=== PATIENT | female | born 2000 | race Caucasian/White ===

== ENCOUNTER 2023-11-17 16:20 | Emergency (ER) | payer MEDICAID, SELFPAY ==
--- NOTE | ~2023-11-17 | XR_ITS ---
EXAMINATION: RADIOGRAPH RIGHT ANKLE AND RIGHT FOOT CLINICAL INFORMATION: Ankle pain, swelling. COMPARISON: None available. TECHNIQUE: 2 views of the right ankle. 3 views of the right foot. FINDINGS: Diffuse soft tissue swelling. Very subtle age indeterminate cortical irregularity in the medial malleolus. No significant degenerative changes. No bone erosions. No abnormal soft tissue calcifications. XR/XR ankle RT min 3V IMPRESSION: 1. Very subtle age indeterminate cortical irregularity in the medial malleolus that could potentially represent an avulsion fracture. Correlate with point tenderness. 2. Diffuse soft tissue swelling.
--- NOTE | ~2023-11-17 | XR_ITS ---
EXAMINATION: RADIOGRAPH RIGHT ANKLE AND RIGHT FOOT CLINICAL INFORMATION: Ankle pain, swelling. COMPARISON: None available. TECHNIQUE: 2 views of the right ankle. 3 views of the right foot. FINDINGS: Diffuse soft tissue swelling. Very subtle age indeterminate cortical irregularity in the medial malleolus. No significant degenerative changes. No bone erosions. No abnormal soft tissue calcifications. XR/XR foot RT min 3V IMPRESSION: 1. Very subtle age indeterminate cortical irregularity in the medial malleolus that could potentially represent an avulsion fracture. Correlate with point tenderness. 2. Diffuse soft tissue swelling.
[2023-11-17 16:57] VITALS: BP 141/91; PULSE 104; RESP 18; TEMP 36.4; O2SAT 100; BMI 43.9
--- NOTE | 2023-11-17 16:57 | ED.LOWEXIN ---
HPI - Extremity Injury (Lower) General Chief Complaint: Extremity Injury, Lower Stated Complaint: ankle swelling and pain Time Seen by Provider: 11/17/23 21:43 Related Data Allergies Allergy/AdvReac Type Severity Reaction Status Date / Time No Known Allergies Allergy Verified 11/17/23 17:00 Physical Exam Vital Signs: Vital Signs: Last Vital Signs Temp 97.6 F 11/17/23 16:57 Pulse 104 H 11/17/23 16:57 Resp 18 11/17/23 16:57 BP 141/91 H 11/17/23 16:57 Pulse Ox 100 11/17/23 16:57 O2 Del Method Room Air 11/17/23 16:57 BMI result Body Mass Index 43.9 Course Course Course Narrative: RME: 23 yo female here w/ atraumatic right ankle pain/ swelling x1 day. admits to rolling her ankle years ago. was not evaluated for this at the time. denies new injury or trauma however recently started a new job requiring her to stand for long periods of time. wrapped the ankle last night without relief. no otc pain meds. xrs ordered. Full HPI, ROS and PE to be performed by the primary ED provider. Medical Decision Making Radiology Impression Discussion of test interpretation with radiology: I have reviewed the radiologist's reading. Radiologist Impression: XR foot and ankle RT min 3V IMPRESSION: 1. Very subtle age indeterminate cortical irregularity in the medial malleolus that could potentially represent an avulsion fracture. Correlate with point tenderness. 2. Diffuse soft tissue swelling. Dictated By: Kourtney Waite
--- NOTE | 2023-11-17 21:58 | ED.LOWEXIN ---
HPI - Extremity Injury (Lower) General Chief Complaint: Extremity Injury, Lower Stated Complaint: ankle swelling and pain Time Seen by Provider: 11/17/23 21:43 Source: patient Mode of arrival: ambulatory Limitations: no limitations History of Present Illness HPI Narrative: 23-year-old female came in for evaluation of right foot/right ankle pain, patient had a history of twisting her ankle 2 years ago did not seek medical attention then since then she has been having on and off pain and right ankle/right foot, patient started new job recently required her to stand for long time yesterday started to have swelling and pain in her right foot, no recent trauma, no recent twisting, able to ambulate and bear weight on the right lower extremity. Related Data Previous Rx's ?Medication ?Instructions ?Recorded ibuprofen 600 mg tablet 600 mg PO Q8H PRN pain #10 tabs 11/17/23 Allergies Allergy/AdvReac Type Severity Reaction Status Date / Time No Known Allergies Allergy Verified 11/17/23 17:00 Review of Systems Review of Systems: All other systems are reviewed and are negative Constitutional: Reports as per HPI and Reports no additional constitutional complaints Eyes: Reports as per HPI and Reports no additional eye complaints Reports system reviewed and no additional complaints, except as documented Cardiovascular: Reports as per HPI and Reports no additional cardiovascular complaints Respiratory: Reports as per HPI and Reports no additional respiratory complaints Gastrointestinal: Reports as per HPI and Reports no additional gastrointestinal complaints Genitourinary: Reports no additional female genitourinary complaints Musculoskeletal: Reports no additional musculoskeletal complaints Skin/Breast: Reports system reviewed and no additional complaints, except as docu Psychiatric: Reports no additional psychiatric complaints Endocrine: Reports no additional endocrine complaints Hematologic/Lymphatic: Reports no additional hematologic/lymphatic complaints Allergic/Immunologic: Reports no additional allergic/immunologic complaints Reports system reviewed and no additional complaints, except as documented and Reports Abnormal speech present [facility] Social History Social History Advance Directives: No Advance Directives Information Provided: No Physical Exam Vital Signs: Vital Signs: Last Vital Signs Temp 97.6 F 11/17/23 16:57 Pulse 104 H 11/17/23 16:57 Resp 18 11/17/23 16:57 BP 141/91 H 11/17/23 16:57 Pulse Ox 100 11/17/23 16:57 O2 Del Method Room Air 11/17/23 16:57 BMI result Body Mass Index 43.9 Vital signs have been reviewed and appear to be correct. Blood pressure elevated. Heart rate normal. Respiratory rate normal. Temperature normal. Oxygen saturation normal. Appearance: Alert. Oriented X3. No acute distress. Head: Normal external exam. Normocephalic. Atraumatic. No Alexander signs noted. No raccoon eyes noted Eyes: PERRLA. EOMI. Conjunctiva and sclera normal. Eyelids normal. ENT: TM's Normal. Pharynx normal. Uvula midline. Moist mucous membranes. No trismus noted. No drooling noted. No muffled voice noted. Neck: Normal inspection. Neck supple. FROM. No adenopathy. Thyroid Normal. No meningeal signs. No neck mass noted. CVS: Normal heart rate and rhythm. Heart sound normal. No murmurs noted. Pulses normal throughout. Respiratory: No respiratory distress. Painless inspiration. Breath sounds normal. No wheezes/rales/rhonchi noted. Chest nontender. No accessory muscle usage noted or decreased air movement noted. Abdomen: Soft and nontender. Bowel sounds normal in all 4 quadrants. No distention noted. No organomegaly noted. No visible injury noted. Back: No CVA tenderness. Full range of motion noted. Skin: Skin warm and dry. Normal skin color. Normal skin turgor. No rashes/lesions/lacerations noted. Extremities: Right foot/right ankle: No swelling, point of tenderness over 5th metatarsophalangeal junction, no ankle swelling or tenderness, in particular there is no medial malleolus tenderness as described on the x-ray as avulsion fracture, patient pain and symptoms is localized to the right 5th metatarsophalangeal junction, neurovascularly intact. Neuro: Oriented X 3. Cranial nerve exam: II-XII are grossly intact No motor deficit. No sensory deficit. Reflexes normal. Course Reevaluation(s) Reevaluation #1: Right foot/ankle pain on and off for 2 years after remote injury, x-ray consistent with avulsion fracture to the medial malleolus, no tenderness on the medial malleolus, neurovascularly intact, as discussed the plan to Raúl bandage wrap, NSAIDs, ice, and follow up with ortho. Time: 22:01 Medical Decision Making Differential Diagnosis Differential Diagnoses: The differential diagnosis associated with the presentation includes (Right ankle dislocation, right ankle fracture, right ankle sprain, right foot fracture, right foot sprain.) Admission/Observation Consideration of admission/observation: Escalation of care including admission/observation considered Discharge Plan Discharge Clinical Impression: Acute pain of right foot Patient Disposition: Home, Self-Care Instructions: Arthralgia (ED) Prescriptions: New ibuprofen 600 mg tablet 600 mg PO Q8H PRN (Reason: pain) Qty: 10 0RF Referrals: Juanita Hopson MD [Primary Care Provider] - Estuardo Li MD [Physician] - Stand Alone Forms: Work/School Release Print Language: Luxembourgish
[2023-11-17 22:10] VITALS: BP 116/65; PULSE 83; RESP 18; TEMP 36.7; O2SAT 99
== END 2023-11-17 22:15 | disposition home or self-care (01) ==
PROVIDERS: Emergency Provider Emergency Medicine; PCP Pediatrics
DX: M25.471 Effusion, right ankle (principal); M25.571 Pain in right ankle and joints of right foot
CPT/HCPCS: 73610; 73630; 99283

== ENCOUNTER 2023-12-02 13:26 | Outpatient (AMB) | payer MEDICAID, SELFPAY ==
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
[2023-12-02 14:29] VITALS: BMI 43.9
== END 2023-12-02 14:53 | disposition home or self-care (01) ==
PROVIDERS: PCP Pediatrics; Visit Provider Physician Assistant
DX: M76.71 Peroneal tendinitis, right leg (principal)
CPT/HCPCS: 99203

== ENCOUNTER → 2023-12-02 13:26 | Outpatient (BNVA) | payer MEDICAID, SELFPAY | PROVIDERS: PCP Pediatrics; Visit Provider Physician Assistant | DX: M76.71 Peroneal tendinitis, right leg (principal) | CPT/HCPCS: 99212 ==

== ENCOUNTER 2024-11-01 14:54 | Outpatient (REF) | payer MEDICAID, SELFPAY ==
--- OUTSIDE RECORDS SUMMARY | 2024-11-01 17:29 | XMS_ITS | Encounter Summary ---
Author Organization [facility] Address [address] [place] [address] [address] [place] [address] Care Team Providers Care Energy Rater Name Role Phone Juanita Hopson MD Primary Care Provider [phone] Reason for Visit * Reason Comments Med Change Request Encounter Details Date Type Department Care Team (Late Contact Info) Description 11/09/2023 Refill [facility] PEDS [address] [place], [place] [phone] Sarah Smith MD [address] [place] [address] Social History Tobacco Use Types Packs/Day Years Used Date Smoking Tobacco: Never Passive Smoke Exposure: Never Smokeless Tobacco: Never Alcohol Use Standard Drinks/Week Comments Never 0 (1 standard drink = 0.6 oz pur e alcohol) Depression Answer Date Recorded Patient Health Questionnaire-9 Score 18 06/03/2023 Patient Health Questionnaire-9 Score 18 06/03/2023 Last PHQ-9: Questionnaire Data Not on file 1 08/03/2022 Depression Answer Date Recorded Patient Health Questionnaire-2 Score 5 06/03/2023 Comments Unknown Sex and Gender Information Value Date Recorded Sex Assigned at Female 06/01/2022 10:29 AM EDT Legal Sex Female 10:29 AM EDT Gender Identity Female 06/01/2022 10:29 AM EDT Sexual Orientation Straight 04/20/2024 2: 39 PM EDT documented as of this encounter Plan of Treatment Upcoming Encounters Date Type Department Care Team (Late Contact Info) Description 11/09/2024 9:30 AM EDT Procedure Visit [facility]S [address] [place], [place] [phone] Gina Rojas, CNM [address] [place] [address] 11/21/2024 9:00 AM EDT Telemedicine [facility] MED & PEDS [address] [place] [address] Juanita Hopson MD [address] [place] [address] documented as of this encounter Visit Diagnoses Not on filedocumented in this encounter Additional Health Concerns Assessment Noted Time PHQ-9 Depression Total Score: 18 023 2:57 PM EDT documented as of this encounter Care Teams Energy Rater Relationship Specialty Start Date End Date Juanita Hopson MD [address] [place] [address] PCP - General Family Medicine 09/24/20 documented as of this encounter
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
--- OUTSIDE RECORDS SUMMARY | 2024-11-01 17:29 | XMS_ITS | Encounter Summary ---
Author Organization [facility] [employer] [facility] Address [address] [place] [address] [address] [place] [address] Care Team Providers Care Data Review Specialist Name Role Phone Juanita Hopson MD Primary Care Provider [phone] Reason for Visit * Reason Comments Med Change Request Encounter Details Date Type Department Care Team ([facility] Contact Info) Description 09/14/2022 Refill [facility] MEDICINE [address] [place] [address] Juanita Hopson MD [address] [place] [address] Primary insomnia Social History Tobacco Use Types Packs/Day Years Used Date Smoking Tobacco: Never Assessed Comments Unknown Sex and Gender Information Value Date Recorded Sex Assigned at Female 06/01/2022 10:29 AM EDT Legal Sex Female 10:29 AM EDT Gender Identity Female 06/01/2022 10:29 AM EDT Sexual Orientation Straight 04/20/2024 2: 39 PM EDT documented as of this encounter Plan of Treatment Upcoming Encounters Date Type Department Care Team (Late Contact Info) Description 11/09/2024 9:30 AM EDT Procedure Visit [facility] MED & PEDS [address] [place], [place] [phone] Gina Rojas CNM [address] [place] [address] 11/21/2024 9:00 AM EDT Telemedicine [facility] MED & PEDS [address] [place], [place] [phone] Juanita Hopson MD [address] [place] [address] documented as of this encounter Visit Diagnoses Diagnosis Primary insomnia Persistent disorder of initiating or maintaining sleep documented in this encounter Care Teams Data Review Specialist Relationship Specialty Start Date End Date Juanita Hopson MD [address] [place] [address] PCP - General Family Medicine 09/24/20 documented as of this encounter
--- OUTSIDE RECORDS SUMMARY | 2024-11-01 17:29 | XMS_ITS | Encounter Summary ---
Author Organization [employer] Address [address] [facility] 7 [place] [address] Care Team Providers Care Rv Repairer Name Role Phone Juanita Hopson MD Primary Care Provider [phone] Reason for Visit * Reason Onset Date Comments Results 12/20/2023 Encounter Details Date Type Department Care Team ([facility] st Contact Info) Description 12/20/2023 Telephone [facility] MEDICINE [address] [place] [address] Juanita Hopson MD [address] [place] [phone] Results Social History Tobacco Use Types Packs/Day Years [...] Patient Health Questionnaire-2 Score 5 06/03/2023 Comments No Sex and Gender Information Value Date Recorded Sex Assigned at Female 06/01/2022 10:29 AM EDT Legal Sex Female 10:29 AM EDT Gender Identity Female 06/01/2022 10:29 AM EDT Sexual Orientation Straight 04/20/2024 2: 39 PM EDT documented as of this encounter Miscellaneous Notes * Telephone Encounter - Wing Bakari RN - 12/23/2023 10:48 AM EDT FYI to provider. Pt contacted about MRI results, pt is frustrated at time it took to obtain resultsand vented being stressed about the wait. Explained to pt that [facility] did not sign off on MRI until 12/20 and [facility] did not receive results until later that day though pt disagrees and says [facility] told her that it was sent earlier. According to media on pt's chart, MRI results were received on 12/20 and relayed this to pt along with how provider that ordered MRI was off. Pt request appt with PCP specifically. Gave telehealth visit for 12/27 at 9 am. Pt verbalized understanding and agreement with plan. * Telephone Encounter - Salvador Contreras - 12/23/2023 8:55 AM EDT Tc from pt requesting an appt with provider over the phone in regards to the results and also a call with them. * Telephone Encounter - Dominga Delgado - 12/22/2023 12:39 PM EDT Tc from pt requesting status on results. * Telephone Encounter - Wing Bakari RN - 12/20/2023 2:00 PM EDT Tc to pt in regards to MRI results, inquired where it was done. Pt stated it was done at [facility] and is anxious for results. Called [facility] and spoke to Dora who stated the MRI is being process and will take 3-4 business days. Called pt back and relayed that MRI is still being processed and togive until at the latest and to call back if she has not heard anything by that day. Pt verbalized understanding and agreement with plan. * Telephone Encounter - Kassandra Freedman - 12/20/2023 9:07 AM EDT Tc from pt requesting a call back in regards MR results. documented in this encounter Plan of Treatment Upcoming Encounters Date Type Department Care Team (Late st Contact Info) Description 11/09/2024 9:30 AM EDT Procedure Visit [facility] MED & PEDS [address] [place] [address] Gina Rojsa, ALENM [address] [place] [address] 11/21/2024 9:00 AM EDT Telemedicine [facility] MED & PEDS [address] [place], [place] [phone] Juanita Hopson MD [address] [place] [address] documented as of this encounter Visit Diagnoses Not on filedocumented in this encounter Additional Health Concerns Assessment Noted Time PHQ-9 Depression Total Score: 18 023 2:57 PM EDT documented as of this encounter Care Teams Rv Repairer Relationship Specialty Start Date End Date Juanita Hopson MD [address] [place] [address] PCP - General Family Medicine 09/24/20 documented as of this encounter
--- OUTSIDE RECORDS SUMMARY | 2024-11-01 17:29 | XMS_ITS | Encounter Summary ---
Author Organization [employer] [facility] Address [address] [place] [address] [address] [place] [address] Care Team Providers Care Belling Machine Operator Name Role Phone Juanita Hopson MD Primary Care Provider [phone] Encounter Details Date Type Department Care Team (Latest Contact Info) Description 11/01/2024 Travel Social History Tobacco Use Types Packs/Day Years [...] Description 11/09/2024 9:30 AM EDT Procedure Visit [facility] MED & PEDS [address] [place] [address] Gina Rojas CNM [address] [place] [address] 11/21/2024 9:00 AM EDT Telemedicine [facility] MED & PEDS [address] [place] [address] Juanita Hopson MD [address] [place] [address] documented as of this encounter Visit Diagnoses Not on filedocumented in this encounter Additional Health Concerns Assessment Noted Time PHQ-9 Depression Total Score: 18 023 2:57 PM EDT documented as of this encounter Care Teams Belling Machine Operator Relationship Specialty Start Date End Date Juanita Hopson MD [address] [place] [address] PCP - General Family Medicine 09/24/20 documented as of this encounter
--- OUTSIDE RECORDS SUMMARY | 2024-11-01 17:29 | XMS_ITS | Encounter Summary ---
Author Organization [employer] [facility] Address [address] [place] [address] 7t [place] [address] Care Team Providers Care Payroll Services Analyst Name Role Phone Juanita Hopson MD Primary Care Provider [phone] Reason for Visit * Reason Comments Med Change Request Encounter Details Date Type Department Care Team ([facility] Contact Info) Description 09/14/2022 Refill [facility] MED & PEDS [address] [place], [place] [phone] Juanita Hopson MD [address] [place] [address] Primary insomnia Social History Tobacco Use Types [...] Upcoming Encounters Date Type Department Care Team ([facility] Contact Info) Description 11/09/2024 9:30 AM EDT Procedure Visit [facility] CHC MED & PEDS [address] [place], [place] [phone] Gina Rojas CNM [address] [place] [address] 11/21/2024 9:00 AM EDT Telemedicine [facility] MED & PEDS [address], [place] [phone] Juanita Hopson MD [address] [place] [address] documented as of this encounter Visit Diagnoses Diagnosis Primary insomnia Persistent disorder of initiating or maintaining sleep documented in this encounter Care Teams Payroll Services Analyst Relationship Specialty Start Date End Date Juanita Hopson MD [address] [place] [address] PCP - General Family Medicine 09/24/20 documented as of this encounter
--- OUTSIDE RECORDS SUMMARY | 2024-11-01 17:29 | XMS_ITS | Encounter Summary ---
Author Organization [employer] Address [address] [place] [address] 7 [place] [address] Care Team Providers Care Etl Lead Name Role Phone Juanita Hopson MD Primary Care Provider [phone] Reason for Visit * Reason Onset Date Comments Medication PA 07/09/2023 Encounter Details Date Type Department Care Team ([facility] st Contact Info) Description 07/09/2023 Telephone [facility] CHC MED & PEDS [address] [place], [place] [phone] Juanita Hopson MD [address] [place] [address] Medication PA Social History Tobacco Use Types Packs/Day Years [...] encounter Miscellaneous Notes * Telephone Encounter - Ramone Vick - 07/28/2023 2:37 PM EST Tc from patient calling to request the status in regards to message below * Telephone Encounter - Salvador Contreras - 07/21/2023 10:50 AM EST Tc from pt requesting status on medication PA Please contact pt @ [phone] * Telephone Encounter - Hilda aVldez LPN - 07/09/2023 3:02 PM EST Please review message below , and advise * Telephone Encounter - Salvador Contreras - 07/09/2023 10:51 AM EST Tc from pt stating that medication DULoxetine HCl 30 MG Capsule Delayed Release Sprinkle won't be refilled at Pharmacy and does not know why. Rug Shampooer contacted Pharmacy and Pharmacy advised medicationNeeded a PA. Please contact Pt @ [phone] documented in this encounter Plan of Treatment Upcoming Encounters Date Type Department Care Team ([facility] st Contact Info) Description 11/09/2024 9:30 AM EDT Procedure Visit [facility] MED & PEDS [address] [place] [address] Gina Rojas CNM [address] [place] [address] 11/21/2024 9:00 AM EDT Telemedicine [facility] MED & PEDS [address] [place] [address] Juanita Hopson MD [address] [place] [address] documented as of this encounter Visit Diagnoses Not on filedocumented in this encounter Additional Health Concerns Assessment Noted Time PHQ-9 Depression Total Score: 18 023 2:57 PM EDT documented as of this encounter Care Teams Etl Lead Relationship Specialty Start Date End Date Juanita Hopson MD [address] [place] [address] PCP - General Family Medicine 09/24/20 documented as of this encounter
--- OUTSIDE RECORDS SUMMARY | 2024-11-01 17:29 | XMS_ITS | Encounter Summary ---
Author Organization [employer] [facility] Address [address] [place] [address] 7t [place] [address] Care Team Providers Care Hydraulic Dredge Operator Name Role Phone Juanita Hopson MD Primary Care Provider [phone] Reason for Visit * Reason Comments Med Change Request Encounter Details Date Type Department Care Team (Late st Contact Info) Description 07/29/2023 Refill [facility] CHC MED & PEDS [address] [place], [place] [phone] Laura Granados MD [address] [place] [address] Elevated blood pressure reading without diagnosis of hypertension Social History Tobacco Use Types Packs/Day Years [...] Description 11/09/2024 9:30 AM EDT Procedure Visit [facility]C MED [facility]EDS [address] [place] [address] Gina Rojas, ALENM [address] [place] [address] 11/21/2024 9:00 AM EDT Telemedicine [facility] MED & PEDS [address] [place] [address] Juanita Hopson MD 505 [place] [address] documented as of this encounter Visit Diagnoses Diagnosis Elevated blood pressure reading without diagnosis of hypertension documented in this encounter Additional Health Concerns Assessment Noted Time PHQ-9 Depression Total Score: 18 023 2:57 PM EDT documented as of this encounter Care Teams Hydraulic Dredge Operator Relationship Specialty Start Date End Date Juanita Hopson MD [address] [place] [address] PCP - General Family Medicine 09/24/20 documented as of this encounter
--- OUTSIDE RECORDS SUMMARY | 2024-11-01 17:30 | XMS_ITS | Clinical Summary ---
Author Organization [employer] Address [address] [facility] 7t [place] [address] Care Team Providers Care Form Tamper Operator Name Role Phone Juanita Hopson MD Primary Care Provider [phone] Allergies No known active allergies Medications * This document contains information received from the source organization and may not represent a complete record from that organization. Melatonin 5 MG capsuleIndications: Primary insomnia ONE TABLET HALF HOUR BEFORE BEDTIME 30 capsule 5 09/14/19 23 Active cloNIDine (Catapres) 0.1 MG tabletIndications:P rimary insomnia TAKE 1 TABLET BY MOUTH AT NIGHT 30 MINUTES BEFORE BED 60 tablet 3 09/14/19 23 Active Melatonin 5 MG capsuleIndications: Primary insomnia Take 1 tab orally qhs 90 capsule 2 09/14/19 23 Active ketotifen (Zaditor) 0.025 % ophthalmic solutionIndications :Eye irritation Administer 1 drop into the right eye 2 times daily. 5 mL 10/03/19 23 Active omeprazole (PriLOSEC) [address] capsuleIndications: Acute gastroenteritis TAKE 1 CAPSULE (20 MG) BY MOUTH BEFORE BREAKFAST. 60 capsule 3 11/06/19 23 Active hydrocortisone (Anusol-HC) 2.5 % rectal creamIndications:He morrhoids, unspecified hemorrhoid type Insert into the rectum 2 times daily. 28 g 12/19/19 23 Active DULoxetine (Cymbalta) [address] capsule Take 1 capsule (20 mg) by mouth 2 times daily. Do not crush or chew. 60 capsule 3 08/09/19 24 Active methocarbamol (Robaxin) 750 MG tablet Take 1 tablet (750 mg) by mouth 3 times daily for 10 days. 30 tablet 12/28/19 24 Active hydrocortisone (West-José Miguel) 0.2 % creamIndications:Al lergic contact dermatitis due to other agents Apply topically 2 times daily. 15 g 04/18/20 24 Active Active Problems Problem Noted Date Diagnosed Date Solitary bone cyst of humerus, right 12/28/2023 Moderate episode of recurrent major depressive d isorder 06/03/2023 Severe anxiety 06/03/2023 Assessment & Plan (06/04/2023 8:37 AM EDT): Assessment: Patient presents with anxiety and depressive symptoms. No risk for self-harm, SI, HI. Reason for visit was to assess symptoms and provide support to patient. 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 Provided space for her to vent and psychoeducation about anxiety and depression coping mechanisms for her to manage symptoms. Med provider will prescribed sertraline 25mg and referral for therapy will be submitted. At this time Lori Garcia meets criteria for Visit Diagnoses: Problem List Items Addressed This Visit Other Moderate episode of recurrent major depressive disorder (CMS/HCC) Severe anxiety Patient ready to address current needs Yes Strengths include Lori is in action stage of change and her motivation will serve as treatment engagement. PLAN: 1. Follow up with [facility]: Not recommended for follow-up 2. Patient goal is to improve mental health 3. Behavioral Recommendations a. Ind. Therapy referral will be submitted. b. Use of coping skills provide as recommended c. Taking her new medication as prescribed. Obesity 10/02/2022 Attention deficit hyperactiv ity disorder (ADHD), predominantly hyperactive impulsive type 10/02/2022 Encounters Date Type Department Care Team Description 11/01/2024 2:20 PM EDT Office Visit [facility] CHC MED & PEDS [address] [place] [address] Jeffrey Sanchez MD Irregular menstrual bleeding (Primary Dx) 11/01/2024 Travel 11/01/2024 Telephone [facility] MEDICINE [address] [place] [address] Juanita Hopson MD Nurse Triage 10/25/2024 Population Health Risk Score [facility] (C[facility]) Department [address] [phone] Provider, Population Health Generic 10/24/2024 Telephone [facility] CHC MED & PEDS [address] [place] [address] Juanita Hopson MD Televisit on 10/24/24 / Unable to Reach 10/24/2024 Travel 10/23/2024 Telephone [facility] MED & PEDS [address] [facility] [place] [address] Juanita Hopson MD Chart Prep 10/12/2024 Telephone [facility] MEDICINE [address] [place] [address] Juanita Hopson MD Nurse Triage 10/09/2024 Telephone [facility] CHC MED & PEDS [address] [facility] [address] Juanita Hopson MD Recall from Last 3 Months Immunizations Name Administration Dates Next Due DTaP 02/25/2006, 4,03/27/2002,12/19,2001 DTaP / IPV 02/25/2006 HPV 9-Valent 08/09/2018,07/22/2016,05/21/2016 Hep A, ped/adol, 2 dose 07/20/2017,07/22/2016 Hep B, Unspecified 07/18/2002,2001, 002 Hep B, adult 07/18/2002,2001,2001 HiB, unspecified 12/19/2002, 2,2001,11/07 IPV 02/25/2006, 6,07/18/2002,12/19,2001 Influenza injectable quadriv alent IIV4 with preservative 07/20/2017 Influenza injectable quadriv alent preservative free 05/26/2023,04/26/2018,07/20/2017,05/21 Influenza live intranasal qu adrivalent LIAV4 04/30/2015 Influenza, IIV3, injectable 05/04/2012, 1,04/17/2010 Influenza, Unspecified 04/30/2015 Influenza, live, intranasal 04/16/2009 MMR 02/25/2006,10/03/2002 Meningococcal MCV4P ACYW-135 04/26/2018,05/21/20 PPD Test 11/03/2023 Pfizer Covid-19 Vaccine 12+ 12/16/2020, Pneumococcal Conjugate PCV 13 12/19/2002 ,03/27/2002,2001,11/07 Pneumococcal Polysaccharide PPSV23 12/19,03/27/2002,2001,11/07 Tdap 05/21/2016 Varicella 04/16/2009,10/03/2002 Social History Tobacco Use Types Packs/Day Years Used Date Smoking Tobacco: Never Passive Smoke Exposure: Never Smokeless Tobacco: Never Tobacco Cessation:Counseling Given: Not Answered Alcohol Use Standard Drinks/Week Comments Never 0 [...] Orientation Straight 04/20/2024 2: 39 PM EDT Last Filed Vital Signs Vital Sign Reading Time Taken Comments Blood Pressure 140/75 11/01/2024 2:25 PM EDT Pulse 96 11/01/2024 2:25 PM EDT Temperature 36.7 ??C (98 ??F) 11/01/2024 2:25 PM EDT Respiratory Rate 20 11/01/2024 2:25 PM EDT Oxygen Saturation 98% 11/01/2024 2:25 PM EDT Inhaled Oxygen Concentration - - Weight 107 kg (235 lb) 11/01/2024 2:25 PM EDT Height 157.5 cm (5' 2 ) 11/01/2024 2:25 PM EDT Body Mass Index 42.98 11/01/2024 2:25 PM EDT Plan of Treatment Upcoming Encounters Date Type Department Care Team (Late st Contact Info) Description 11/09/2024 9:30 AM EDT Procedure Visit [facility] MED & PEDS [address] [place] [address] Gina Rojas, NICOLE [address] [place] [address] 11/21/2024 9:00 AM EDT Telemedicine [facility] MED & PEDS [address] [place], [place] [phone] Juanita Hopson MD [address] [place] [address] Health Maintenance Due Date Last Done Comments HIV Screening 2001 Lipid Panel 2001 SDOH Screening 2001 Alcohol/Substance Use Screening 2013 Family Planning (PISQ) 2016 Hepatitis C Screening 2019 Chlamydia and Gonorrhea Screening 10/29/2021 10/29/2020 Pap Smear 2022 Depression Monitoring (PHQ-9) 12/02/2023 06/03/2023, 06/03/2023 COVID-19 Vaccine ( season) 2024 10/10/2022, 09/27/2021, 12/16/2020, Additional history exists Influenza Vaccine (#1) 2024 , 04/26/2018, 07/20/2017, Additional history exists Depression Screening 06/03/2024 06/03/2023, 06/03/20 23 Tobacco Screening 11/01/2025 11/01/2024 DTaP/Tdap/Td Vaccines (7 - Td or Tdap) 05/21/2026 05/21/2016, 02/25/2006, 02/25/2006, Additional history exists Zoster Vaccines (1 of 2) 2051 RSV Patients and Patients Aged 60 years or older (1 - 1-dose 75+ series) 2076 Hepatitis B Vaccines Completed 07/18/2002, 07/18/2002, 2001, Additional history exists HIB Vaccines Completed 12/19/2002, 03/03, 2001, Additional history exists Pneumococcal Vaccine: Pediatrics (0 to 5 Years) and At-Risk Patients (6 to 49) Years) Completed 12/19/2002, 12/19/2002, 03/27/2002, Additional history exists IPV Vaccines Completed 02/25/2006, 01/31, 09/28/2005, Additional history exists Hepatitis A Vaccines Completed 07/20/2017, 07/22/20 16 Meningococcal Vaccine Completed 04/26/2018, 016 HPV Vaccines Completed 08/09/2018, 07/03, 05/21/2016 RSV under 20 months Aged Out No longe r eligible based on patient's age to complete this topic Rotavirus Vaccines Aged Out No longer eligible based on patient's age to complete this topic Procedures Procedure Name Priority Date/Time Associated Diagnosis Comments KevinZZ HISTORICAL CHLAMYDIA/N. GONORRHOEAE RNA, TMA, UROGENITAL Routine 10/29/2020 9:48 AM EDT from Last 3 Months or Most Recently Relevant to Health Maintenance Results * CHLAMYDIA/N. GONORRHOEAE RNA, TMA, UROGENITAL (10/29/2020 9:48 AM EDT) Chlamydia trachomatis RNA, TMA, Urogenital NOT DETECTED NOT DETECTED [facility] COMMENT SEE COMMENT [facility] Comment: The analytical performance characteristics of this assay, when used to test SurePath(TM) specimens have been determined by [employer]. The modifications have not been cleared or approved by the FDA. This assay has been validated pursuant to the CLIA regulations and is used for clinical purposes. ?? For additional information, please refer to https://education.Qui.lt/faq/JHB869 (This link is being provided for information/ educational purposes only.) ?? Neisseria gonorrhoeae RNA, TMA, Urogenital NOT DETECTED NOT DETECTED [facility] 10/29/2020 9:48 AM EDT Gina Rojas CNM HISTORICAL/NON ORDERABLE LABS Final Result [facility] [place] [id number], from Last 3 Months or Most Recently Relevant to Health Maintenance Insurance [employer] Care Teams Form Tamper Operator Relationship Specialty Start Date End Date Juanita Hopson MD [address] [place] [address] PCP - General Family Medicine 09/24/20
--- OUTSIDE RECORDS SUMMARY | 2024-11-01 17:30 | XMS_ITS | Encounter Summary ---
Author Organization [employer] Address [address] [facility] 7 [place] [address] Care Team Providers Care Test Engineer Nuclear Equipment Name Role Phone Juanita Hopson MD Primary Care Provider [phone] Reason for Visit * Reason Onset Date Comments Nurse Triage 11/01/2024 Encounter Details Date Type Department Care Team (Late st Contact Info) Description 11/01/2024 Telephone [facility] MEDICINE [address] [place] [address] Juanita Hopson MD [address] [place] [address] Nurse Triage Social History Tobacco Use Types Packs/Day Years [...] encounter Miscellaneous Notes * Telephone Encounter - Ivana Iniguez RN - 11/01/2024 10:05 AM EDT Call returned to Lori Garcia to triage below. Reports having spotting x 2 months. Per pt did twoHPT and negative. Last had spotting 1 week ago x 3 days. Per pt last normal Menses was 09/22/24, flow was normal , lasted 4 days. Not any form of BC. Per pt both test done with first urine of the morning. Last test was 2 weeks ago. No repeat done. Pt having some nausea and vomiting approx 3 times per day. Pt has had mild cramping. Pt has not had any changes to diet or exercise regimen. Pt also having urinary frequency. No odor, pain or dark color. Pt advised of disposition, agrees to [facility] appt today. Reviewed home care advise, ER precautions and reasons to call back. Protocol Used: Vaginal Bleeding - Abnormal (Adult) Protocol-Based Disposition: See in Office or Video Visit within 2 Weeks Future Appointments Date Time Provider Department Center 11/01/2024 2:20 PM [facility] SAME DAY [facility] 11/21/2024 9:[address] [facility] Insurance verified as active per [employer] Eligibility in [employer]. Positive Triage Questions: * Missed period has occurred 2 or more times in the last year and the cause is not known * Bleeding or spotting between regular periods occurs more than three cycles (3 months) this past year * All higher-acuity triage questions were negative Care Advice Discussed: * Reasons To Call Back - Severe abdomen pain or lightheadedness occurs - Bleeding worsens - You become worse * Telephone Encounter - Carito Marcos - 11/01/2024 9:41 AM EDT Symptom: Morning Sickness Outcome: Schedule a same-day appointment or talk to a nurse or provider today Reason: Caller denied all higher acuity questions The caller accepted this outcome. documented in this encounter Plan of Treatment Upcoming Encounters Date Type Department Care Team (Late st Contact Info) Description 11/09/2024 9:30 AM EDT Procedure Visit [facility] MED & PEDS [address] [facility] [place] [address] Gina Rojas, CNM [address] [place] [address] 11/21/2024 9:00 AM EDT Telemedicine [facility] CHC MED & PEDS [address] [place] [address] Juanita Hopson MD [address] [place] [address] documented as of this encounter Visit Diagnoses Not on filedocumented in this encounter Additional Health Concerns Assessment Noted Time PHQ-9 Depression Total Score: 18 023 2:57 PM EDT documented as of this encounter Care Teams Test Engineer Nuclear Equipment Relationship Specialty Start Date End Date Juanita Hopson MD [address] [place] [address] PCP - General Family Medicine 09/24/20 documented as of this encounter
--- OUTSIDE RECORDS SUMMARY | 2024-11-01 17:30 | XMS_ITS | Encounter Summary ---
Author Organization [employer] [facility] Address [address] [place] [address] 7 [place] [address] Care Team Providers Care Plant Wire Chief Name Role Phone Juanita Hopson MD Primary Care Provider [phone] Reason for Visit * Reason Onset Date Comments Nurse Triage 06/05/2024 Encounter Details Date Type Department Care Team ([facility] st Contact Info) Description 06/05/2024 Telephone [facility] CHC MED & PEDS [address] [place] [address] Juanita Hopson MD [address] [place] [address] Nurse Triage Social History Tobacco Use Types [...] encounter Miscellaneous Notes * Telephone Encounter - Mely Caballero RN - 06/05/2024 2:41 PM EST Triage call Pt reports menstrual bleeding is moderate to severe. Pt has used up to 6-7 pads at timeof call. Pt reports periods have always been painful but, today this is more than usual. Pt reportsblood clots at times that are large as small marble. Pt reports feeling some weakness and some nausea at times.Pt had been using control at one point which was helpful but, due to weight gain Pt declines to use this. Pt reports periods have been lasting 7 days. ASK apt with TACO Moe today [id number]. Pt is advised to use tylenol/motrin for pain and heating pad while lying down. Pt agrees with disposition and Insurance is verified as active prior to booking. Protocol Used: Abdominal Pain - Menstrual Cramps (Adult) Protocol-Based Disposition: See in Office or Video Visit Today Video visit not offered Positive Triage Questions: * Moderate vaginal bleeding (e.g., soaking 1 pad or tampon per hour and present > 6 hours; 1 menstrual cup every 6 hours) * Patient wants to be seen * All higher-acuity triage questions were negative Care Advice Discussed: * Reassurance and Education - Menstrual Cramps * Pain Medicines for Menstrual Cramps * Exercise Regularly * Use Heat * Reasons To Call Back - Severe pain and not better after taking ibuprofen or naproxen - Menstrual cramps cause you to miss work, school, or other important activities - Menstrual cramps last over 3 days - You become worse * Telephone Encounter - America Lazaro - 06/05/2024 1:42 PM EST Symptom: Vaginal Bleeding, cramp - Not Outcome: Talk to a nurse or provider within 15 minutes Reason: Heavy bleeding The caller accepted this outcome. documented in this encounter Plan of Treatment Upcoming Encounters Date Type Department Care Team (Late st Contact Info) Description 11/09/2024 9:30 AM EDT Procedure Visit [facility] MED & PEDS [address] [place], [place] [phone] Gina Rojas CNM [address] [place], [place] [phone] 11/21/2024 9:00 AM EDT Telemedicine [facility] CHC MED & PEDS [address] [place] [address] Juanita Hopson MD [address] [place] [address] documented as of this encounter Visit Diagnoses Not on filedocumented in this encounter Additional Health Concerns Assessment Noted Time PHQ-9 Depression Total Score: 18 023 2:57 PM EDT documented as of this encounter Care Teams Plant Wire Chief Relationship Specialty Start Date End Date Juanita Hopson MD [address] [place] [address] PCP - General Family Medicine 09/24/20 documented as of this encounter
--- OUTSIDE RECORDS SUMMARY | 2024-11-01 17:30 | XMS_ITS | Encounter Summary ---
Author Organization [employer] Address [address] [place] [address] 7 [place] [address] Care Team Providers Care Manager Instrumentation Name Role Phone Juanita Hopson MD Primary Care Provider [phone] Reason for Referral * Imaging (Routine) - Authorized Specialty Diagnoses / Procedures Referred By Contac t Referred To Contact Radiology Diagnoses Irregular menstrual bleeding Procedures US Pelvis Transvaginal Jeffrey Sanchez MD [address] [place] [address] Phone: tel: fax: [address] Phone: tel: fax: Referral ID Status Reason Start Date Expiration Date V isits Requested Visits Authorized [id number] Authorized 11/01/2024 11/01/2025 1 1 Reason for Visit * Reason Comments Vaginal Bleeding Encounter Details Date Type Department Care Team (Late st Contact Info) Description 11/01/2024 2:20 PM EDT Office Visit [facility] [address] [place], [place] [phone] Jeffrey Sanchez MD [address] [place] [address] Irregular menstrual bleeding (Primary Dx) Social History Tobacco Use Types Packs/Day Years [...] PM EDT documented as of this encounter Last Filed Vital Signs Vital Sign Reading [...] Mass Index 42.98 11/01/2024 2:25 PM EDT documented in this encounter Progress Notes * Jeffrey Sanchez MD - 11/01/2024 2:20 PM EDT Subjective Patient ID: Lori Garcia is a 24 y.o. female who presents for Vaginal Bleeding. Vaginal Bleeding Pertinent negatives include no chills, diarrhea, dysuria, flank pain or frequency. Patient reports a history of vaginal spotting that lasted 3 days about 2 weeks ago. The symptoms have resolved now. She got concerned because is the first time she had this type of symptom. The. Did not feel like a real.. She did not have to use more than 1 pad a day during these 3 days. It was associated with some mild abdominal cramping and malaise. No associated fever. She has done multiple test which are negative. Patient Active Problem List Diagnosis Obesity Attention deficit hyperactivity disorder (ADHD), predominantly hyperactive impulsive type Moderate episode of recurrent major depressive disorder (CMS/HCC) Severe anxiety Solitary bone cyst of humerus, right Current Outpatient Medications on File Prior to Visit Medication Sig Dispense Refill cloNIDine (Catapres) 0.1 MG tablet TAKE 1 TABLET BY MOUTH AT NIGHT 30 MINUTES BEFORE BED 60 tablet 3 DULoxetine (Cymbalta) [address] capsule Take 1 capsule (20 mg) by mouth 2 times daily. Do not crush or chew. 60 capsule 3 hydrocortisone (Anusol-HC) 2.5 % rectal cream Insert into the rectum 2 times daily. 28 g 0 hydrocortisone (West-José Miguel) 0.2 % cream Apply topically 2 times daily. 15 g 0 ketotifen (Zaditor) 0.025 % ophthalmic solution Administer 1 drop into the right eye 2 times daily.5 mL 0 Melatonin 5 MG capsule ONE TABLET HALF HOUR BEFORE BEDTIME 30 capsule 5 Melatonin 5 MG capsule Take 1 tab orally qhs 90 capsule 2 methocarbamol (Robaxin) 750 MG tablet Take 1 tablet (750 mg) by mouth 3 times daily for 10 days. 30tablet 0 omeprazole (PriLOSEC) [address] capsule TAKE 1 CAPSULE (20 MG) BY MOUTH BEFORE BREAKFAST. 60 capsule3 No current facility-administered medications on file prior to visit. No Known Allergies Review of Systems Constitutional: Negative for activity change, appetite change, chills and diaphoresis. HENT: Negative for dental problem, drooling, ear discharge, ear pain and hearing loss. Eyes: Negative for pain, discharge and itching. Respiratory: Negative for cough, choking and chest tightness. Cardiovascular: Negative for chest pain and leg swelling. Gastrointestinal: Negative for blood in stool and diarrhea. Genitourinary: Positive for vaginal bleeding. Negative for difficulty urinating, dyspareunia, dysuria, enuresis, flank pain, frequency and genital sores. Musculoskeletal: Negative for arthralgias, gait problem and joint swelling. Skin: Negative for pallor. Neurological: Negative for dizziness, seizures, speech difficulty, light- headedness and numbness. Psychiatric/Behavioral: Negative for behavioral problems, confusion and decreased concentration. Objective BP (!) 140/75 (BP Location: Left arm, Patient Position: Sitting, BP Cuff Size: Adult long) Pulse 96 Temp 98 ??F (36.7 ??C) (Oral) Resp 20 Ht 5' 2 (1.575 m) Wt 235 lb (107 kg) SpO2 98% BMI 42.98 kg/m?? Physical Exam Constitutional: General: She is not in acute distress. Appearance: Normal appearance. She is obese. She is not ill-appearing, toxic- appearing or diaphoretic. Pulmonary: Effort: Pulmonary effort is normal. Abdominal: General: There is no distension. Palpations: Abdomen is soft. There is no mass. Tenderness: There is no abdominal tenderness. Hernia: No hernia is present. Neurological: Mental Status: She is alert. Psychiatric: Mood and Affect: Mood normal. Assessment/Plan Diagnoses and all orders for this visit: Irregular menstrual bleeding - TSH W/Reflex to FT4; Future - CBC auto differential; Future - hCG, Total, Quantitative; Future - US Pelvis Transvaginal; Future Patient is not interested in getting now. She is requesting to get an appointment to consider placing the nonhormonal IUD. She has tried hormonal method of contraception in the past which where not well- tolerated. An appointment will be made for her. She will be called with the results of the workup. documented in this encounter Plan of Treatment Upcoming Encounters Date Type Department Care Team (Late st Contact Info) Description 11/09/2024 9:30 AM EDT Procedure Visit [facility]S [address] [place] [address] Gina Rojas, CN [address] [place] [address] 11/21/2024 9:00 AM EDT Telemedicine [facility] [address] [place], [place] [phone] Juanita Hopson MD [address] [place], [place] [phone] Scheduled Orders Name Type Priority Associated Diagnoses Orde r Schedule TSH W/Reflex to FT4 Lab Routine Irregular menstrual bleeding Expected: 11/01/2024 (Approximate), Expires: 11/01/2025 CBC auto differential Lab Routine Irregular menstrual bleeding Expected: 11/01/2024 (Approximate), Expires: 11/01/2025 hCG, Total, Quantitative Lab Routine Irregular menstrual bleeding Expected: 11/01/2024 (Approximate), Expires: 11/01/2025 US Pelvis Transvaginal Imaging Routine Irregular menstrual bleeding Expected: 11/01/2024, Expires: 11/01/2025 documented as of this encounter Visit Diagnoses Diagnosis Irregular menstrual bleeding- Primary Irregular menstrual cycle documented in this encounter Additional Health Concerns Assessment Noted Time PHQ-9 Depression Total Score: 18 023 2:57 PM EDT documented as of this encounter Care Teams Manager Instrumentation Relationship Specialty Start Date End Date Juanita Hopson MD [address] [place] [phone] PCP - General Family Medicine 09/24/20 documented as of this encounter
--- OUTSIDE RECORDS SUMMARY | 2024-11-01 17:30 | XMS_ITS | Clinical Summary ---
Author Organization [facility] Address [address] [place] [address] Care Team Providers Care Fire Investigation Manager Name Role Phone Juanita Hopson MD Primary Care Provider [phone] Social History Tobacco Use Types Packs/Day Years Used Date Smoking Tobacco: Never Alcohol Use Standard Drinks/Week Comments Never 0 (1 standard drink = 0.6 oz pur e alcohol) Comments Unknown Sex and Gender Information Value Date Recorded Sex Assigned at Not on file Legal Sex Female 6:52 PM EST Gender Identity Not on file Sexual Orientation Not on file Obstetrics History Last Filed Vital Signs Vital Sign Reading Time Taken Comments Blood Pressure 130/88 06/12/2022 9:05 AM EST Pulse 105 06/12/2022 9:05 AM EST Temperature - - Respiratory Rate - - Oxygen Saturation - - Inhaled Oxygen Concentration - - Weight 103 kg (228 lb) 06/12/2022 9:05 AM EST Height 157.5 cm (5' 2 ) 03/03/2022 9:49 AM EDT Body Mass Index 41.7 03/03/2022 9:49 AM EDT Plan of Treatment Health Maintenance Due Date Last Done Comments Gonorrhea/Chlamydia Screening 2001 HPV Vaccines (1 - 3-dose series) 2016 Meningococcal B Vacine (1 of 2 - Standard) 2017 DTaP,Tdap,and Td Vaccines (1 - Tdap) 2020 Hepatitis B Vaccines (1 of 3 - 19+ 3-dose series) 2020 Depression Screening 07/04/2022 HIV Screening 07/04/2022 Hepatitis C Screening 07/04/2022 Social Influencers of Health Screening 07/04/2022 Cervical Cancer Screening: P ap Smear 2022 COVID-19 Vaccine (2023-2 5 season) 2024 Influenza Vaccine (Season Ended) 2025 HIB Vaccines Aged Out No longer eligi ble based on patient's age to complete this topic Hepatitis A Vaccines Aged Out No long er eligible based on patient's age to complete this topic IPV Vaccines Aged Out No longer eligi ble based on patient's age to complete this topic MMR Vaccines Aged Out No longer eligi ble based on patient's age to complete this topic Meningococcal ACWY Vaccine Aged Out N o longer eligible based on patient's age to complete this topic Pneumococcal Vaccine: Pediat rics (0 to 5 Years) and At-Risk Patients (6 to 64 Years) Aged Out No longer eligible b ased on patient's age to complete this topic RSV Immunization Patients Un yayo 20 months Aged Out No longer eligible b ased on patient's age to complete this topic Varicella Vaccines Aged Out No longer eligible based on patient's age to complete this topic Care Teams Fire Investigation Manager Relationship Specialty Start Date End Date Juanita Hopson MD [address] [place] [phone] PCP - General 07/02/21
[2024-11-01 18:03] LABS: MANUAL DIFF FLAG NO
[2024-11-01 18:58] LABS: HCG Quantitative < 2 mIU/mL; TSH reflex Free T4 1.37 uIU/mL (0.32-4.0)
[2024-11-01 19:31] LABS: Basophils Absolute Auto 0.1 X10*3/uL (0.0-0.2); Basophils Percent Auto 0.5 % (0-2); Eosinophils Absolute Auto 0.1 X10*3/uL (0.0-0.4); Eosinophils Percent Auto 0.8 % (0-4); Hematocrit 38.2 % (37.0-47.0); Hemoglobin 12.7 g/dl (12.0-16.0); Imm Gran Abs Auto 0.04 X10*3/uL (0.00-0.03); Imm Gran Pct Auto 0.4 % (0.0-0.4); Lymphocytes Absolute Auto 2.5 X10*3/uL (1.2-4.9); Lymphocytes Percent Auto 22.1 % (20-40); Mean Corpuscular HGB Conc 33.2 g/dl (31.0-35.0); Mean Corpuscular Hemoglobin 26.8 pg (27.0-33.0); Mean Corpuscular Volume 80.6 fL (80.0-98.0); Mean Platelet Volume 10.7 fL (9.4-12.3); Monocytes Absolute Auto 0.5 X10*3/uL (0.1-1.2); Monocytes Percent Auto 4.4 % (2-11); Neutrophils Percent Auto 71.8 % (45-73); Platelet Count 377 X10*3/uL (160-400); Red Blood Count 4.74 X10*6/uL (4.20-5.50); Red Cell Distribution Width 14.6 % (11.0-16.0); White Blood Count 11.1 X10*3/uL (4.8-10.8)
== END 2024-11-01 14:55 | disposition home or self-care (01) ==
LOC: HO.CHCLDS 14:54
PROVIDERS: Visit Provider Internal Medicine
DX: N92.6 Irregular menstruation, unspecified (principal)
CPT/HCPCS: 36415; 84443; 84702; 85025

== ENCOUNTER 2024-11-09 09:14 | Outpatient (REF) | payer MEDICAID, SELFPAY ==
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
--- OUTSIDE RECORDS SUMMARY | 2024-11-09 09:57 | XMS_ITS | Encounter Summary ---
Author Organization [facility] Address [address] [place] [address] 7t [place] [address] Care Team Providers Care Freight Tallier Name Role Phone Juanita Hopson MD Primary Care Provider [phone] Reason for Visit * Reason Comments Med Change Request Encounter Details Date Type Department Care Team (Late Contact Info) Description 07/29/2023 Refill [facility] & PEDS [address] [place], [place] [phone] Laura Granados MD [address] [place] [address] Elevated blood pressure reading without diagnosis of [...] Info) Description 11/21/2024 9:00 AM EDT Telemedicine [facility] PEDS [address] [place] [address] Juanita Hopson MD [address] [place] [address] documented as of this encounter Visit Diagnoses Diagnosis Elevated blood pressure reading without diagnosis of hypertension documented in this encounter Additional Health Concerns Assessment Noted Time PHQ-9 Depression Total Score: 18 023 2:57 PM EDT documented as of this encounter Care Teams Freight Tallier Relationship Specialty Start Date End Date Juanita Hopson MD [address] [place] [address] PCP - General Family Medicine 09/24/20 documented as of this encounter
--- OUTSIDE RECORDS SUMMARY | 2024-11-09 09:57 | XMS_ITS | Encounter Summary ---
Author Organization [employer] [facility] Address [address] [place] [address] 7t [place] [address] Care Team Providers Care Software Sales Executive Name Role Phone Juanita Hopson MD Primary Care Provider [phone] Reason for Visit * Reason Comments Med Change Request Encounter Details Date Type Department Care Team (Late Contact Info) Description 11/09/2023 Refill [facility] PEDS [address] [place] [address] Sarah Smith MD [address] [place] [address] Social History Tobacco Use Types Packs/Day Years [...] Department Care Team (Late Contact Info) Description 11/21/2024 9:00 AM EDT Telemedicine [facility] PEDS [address] [place] [address] Juanita Hopson MD [address] [place] [address] documented as of this encounter Visit Diagnoses Not on filedocumented in this encounter Additional Health Concerns Assessment Noted Time PHQ-9 Depression Total Score: 18 023 2:57 PM EDT documented as of this encounter Care Teams Software Sales Executive Relationship Specialty Start Date End Date Juanita Hopson MD [address] [place] [address] PCP - General Family Medicine 09/24/20 documented as of this encounter
--- OUTSIDE RECORDS SUMMARY | 2024-11-09 09:57 | XMS_ITS | Clinical Summary ---
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 Provided space for her to vent and [...] treatment engagement. PLAN: 1. Follow up with [facility]: Not recommended for follow-up 2. Patient goal is to improve mental health 3. Behavioral Recommendations a. Ind. Therapy referral will be submitted. b. Use of coping skills provide as recommended c. Taking her new medication as prescribed. Obesity 10/02/2022 Attention deficit hyperactiv ity disorder (ADHD), predominantly hyperactive impulsive type 10/02/2022 Encounters Date Type Department Care Team Description 11/09/2024 9:30 AM EDT Procedure Visit [facility] & PEDS [address] [place] [address] iGna Rojas CNM Arrived 11/09/2024 Travel 11/08/2024 Telephone [employer] [facility] [address] [place] [address] Jeffrey Sanchez MD PELVIS ORDER 11/06/2024 Travel 11/03/2024 Telephone [facility] PED[facility] [address] [place], [place] [phone] Jeffrey Sanchez MD Results 11/02/2024 Orders Only [facility] MED & PEDS [address] [place] [address] Jeffrey Sanchez MD Irregular menstrual bleeding (Primary Dx) 11/01/2024 2:20 PM EDT Office Visit [facility] PEDS [address] [place] [address] Jeffrey Snachez MD Irregular menstrual bleeding (Primary Dx) 11/01/2024 Travel 11/01/2024 Telephone [facility] MEDICINE [address] [place] [address] Juanita Hopson MD Nurse Triage 10/25/2024 Population Health Risk Score [facility] () Department [address] [place] [phone] Provider, Population Health Generic 10/24/2024 Telephone [facility] PEDS [address] [place] [address] Juanita Hopson MD Televisit on 10/24/24 / Unable to Reach 10/24/2024 Travel 10/23/2024 Telephone [facility] PEDS [address] [place] [address] Juanita Hopson MD Chart Prep 10/12/[address] [address] Juanita Hopson MD Nurse Triage 10/09/2024 Telephone [facility]S [address] [place] [address] Juanita Hopson MD Recall from Last 3 [...] 04/16/2009 MMR 02/25/2006,10/03/2002 Meningococcal MCV4P [id number]-135 04/26/2018,05/21/20 16 PPD Test 11/03/2023 Pfizer Covid-19 Vaccine 12+ [...] Sign Reading Time Taken Comments Blood Pressure 135/81 11/09/2024 9:39 AM EDT Pulse 99 11/09/2024 9:39 AM EDT Temperature 36.8 ??C (98.2 ??F) 11/09/2024 9:39 AM ED T Respiratory Rate 20 11/09/2024 9:39 AM EDT Oxygen Saturation 98% 11/09/2024 9:39 AM EDT Inhaled Oxygen Concentration - - Weight 104 kg (229 lb 6.4 oz) 11/09/2024 9:39 AM EDT Height 157.5 cm (5' 2 ) 11/09/2024 9:39 AM EDT Body Mass Index 41.96 11/09/2024 9:39 AM EDT Plan of Treatment Upcoming Encounters Date Type Department Care Team ([facility] st Contact Info) Description 11/21/2024 9:00 AM EDT Telemedicine [facility] MED [facility] PEDS [address] [place] [address] Juanita Hopson MD [address] [place] [address] Health Maintenance Due Date Last Done Comments HIV Screening 2001 Lipid Panel 2001 SDOH Screening 2001 Alcohol/Substance Use Screening 2013 Family Planning (PISQ) 2016 Hepatitis C Screening 2019 Chlamydia and Gonorrhea Screening 10/29/2021 10/29/2020 Pap Smear 2022 Depression Monitoring 12/02/2023 06/03/2023, 023 COVID-19 Vaccine ( season) 2024 10/10/2022, 09/27/2021, [...] Procedure Name Priority Date/Time Associated Diagnosis Comments HCG, TOTAL, QN Routine 11/01/2024 2:56 PM EDT Irregular menstrual bleeding CBC WITH AUTO DIFFERENTIAL Routine 11/01/2024 2:56 PM EDT Irregular menstrual bleeding TSH W/REFLEX TO FT4 Routine 11/01/2024 2 :56 PM EDT Irregular menstrual bleeding ZZZ HISTORICAL CHLAMYDIA/N. GONORRHOEAE RNA, TMA, UROGENITAL Routine 10/29/2020 9:48 AM EDT from Last 3 Months or Most Recently Relevant to Health Maintenance Results * TSH W/Reflex to FT4 (11/01/2024 2:56 PM EDT) TSH reflex Free T4 1.37 0.32 - 4.0 uIU/mL [facility] Blood Venous blood specimen / Unknown 11/01/2024 2:56 PM EDT 11/01/2024 5:57 PM EDT Jeffrey Sanchez MD LAB BLOOD ORDERABLES Final Result [facility] [address] [place], [place] [phone] * (ABNORMAL) CBC auto differential (11/01/2024 2:56 PM EDT) White Blood Count 11.1(H) 4.8 - 10.8 X10*3/uL [facility] Red Blood Count 4.74 4.20 - 5.50 X10*6/uL [facility] Hemoglobin 12.7 12.0 - 16.0 g/dl [facility] Hematocrit 38.2 37.0 - 47.0 % [facility] Mean Corpuscular Volume 80.6 80.0 - 98.0 fL [facility] Mean Corpuscular Hemoglobin 26.8(L) 27.0 - 33.0 pg [facility] Mean Corpuscular HGB Conc 33.2 31.0 - 35.0 g/dl [facility] Red Cell Distribution Width 14.6 11.0 - 16.0 % [facility] Platelet Count 377 160 - 400 X10*3/uL [facility] Mean Platelet Volume 10.7 9.4 - 12.3 fL [facility] Neutrophils Percent Auto 71.8 45 - 73 % [facility] Imm Gran Pct Auto 0.4 0.0 - 0.4 % [facility] Lymphocytes Percent Auto 22.1 20 - 40 % [facility] Monocytes Percent Auto 4.4 2 - 11 % [facility] Eosinophils Percent Auto 0.8 0 - 4 % [facility] Basophils Percent Auto 0.5 0 - 2 % [facility] NRBC Pct Auto 0.0 0.0 - 0.2 /100WBC [facility] Neutrophils Absolute Auto 8.0 2.0 - 8.3 x10*3/uL [facility] Imm Gran Abs Auto 0.04(H) 0.00 - 0.03 X10*3/uL [facility] Lymphocytes Absolute Auto 2.5 1.2 - 4.9 X10*3/uL [facility] Monocytes Absolute Auto 0.5 0.1 - 1.2 X10*3/uL [facility] Eosinophils Absolute Auto 0.1 0.0 - 0.4 X10*3/uL [facility] Basophils Absolute Auto 0.1 0.0 - 0.2 X10*3/uL [facility] NRBC Abs Auto 0.000 0.0 - 0.012 X10*3/uL [facility] Blood Venous blood specimen / Unknown 11/01/2024 2:56 PM EDT 11/01/2024 5:57 PM EDT us Jeffrey Sanchez MD LAB BLOOD ORDERABLES Final Result [facility] [address] [place] [address] [phone] * hCG, Total, Quantitative (11/01/2024 2:56 PM EDT) HCG Quantitative <2 mIU/mL [facility] Comment:Weeks post LMP Appro ximate hCG(Last Menstrual Period) Range (mIU/ml)3 - 4 weeks 9 - 1304 - 5 weeks 75 - 2,6005 - 6 weeks 850 - 20,8006 - 7 weeks 4000 - 100,2007 - 12 weeks 11,500 - 289,47669 - 16 weeks 18,300 - 137,40870 - 29 weeks (2nd trimester) 1,400 - 53,66719 - 41 weeks (3rd trimester) 940 - 60,000The [place] B- hCG assay is used for the early detection ofpregnancy; it cannot be used to diagnose any conditionunrelated to . If a B-hCG level is not supportedby the clinical evidence, results should be confirmed by analternative method (qualitative urine hCG, for example). Blood Venous blood specimen / Unknown 11/01/2024 2:56 PM EDT 11/01/2024 5:57 PM EDT us Jeffrey Sanchez MD LAB BLOOD ORDERABLES Final Result Performing Organization Address City/[facility]/ZIP Co de Phone Number [facility] [address] [place] [address] [phone] * CHLAMYDIA/N. GONORRHOEAE RNA, TMA, UROGENITAL (10/29/2020 9:48 AM EDT) Chlamydia trachomatis RNA, TMA, Urogenital NOT DETECTED NOT DETECTED [facility] COMMENT SEE COMMENT [facility] Comment: The analytical performance characteristics of this assay, when used to test SurePath(TM) specimens have been determined by [employer]. The modifications have not been cleared or approved by the FDA. This assay has been validated pursuant to the CLIA regulations and is used for clinical purposes. ?? For additional information, please refer to https://education.Battlefy/faq/AEU678 (This link is being provided for information/ educational purposes only.) ?? Neisseria gonorrhoeae RNA, TMA, Urogenital NOT DETECTED NOT DETECTED [facility] 10/29/2020 9:48 AM EDT us Gina Rojas CNM HISTORICAL/NON ORDERABLE LABS Final Result Performing Organization Address City[facility] Co de Phone Number [facility] [address] from Last 3 Months or Most Recently Relevant to Health Maintenance Insurance [facility] [employer] Care Teams Fleet Sales Manager Relationship Specialty Start Date End Date Juanita Hopson MD [address] [place] [phone] PCP - General Family Medicine 09/24/20
--- OUTSIDE RECORDS SUMMARY | 2024-11-09 09:57 | XMS_ITS | Encounter Summary ---
Author Organization [employer] Address [address] [place] [address] 7t [place] [address] Care Team Providers Care Floor Waxer Name Role Phone Juanita Hopson MD Primary Care Provider [phone] Encounter Details Date Type Department Care Team (Late Contact Info) Description 11/02/2024 Orders Only [facility] CHC MED & PEDS [address] [place], [place] [phone] Jeffrey Sanchez MD 505 [place], [place] [phone] Irregular menstrual bleeding (Primary Dx) Social History [...] Info) Description 11/21/2024 9:00 AM EDT Telemedicine [facility] CHC MED & PEDS 505 [place] [address] Juanita Hopson MD 505 [place] [address] Scheduled Orders Name Type Priority Associated Diagnoses Orde r Schedule CBC auto differential Lab Routine Irregular menstrual bleeding Expected: 11/02/2024 (Approximate), Expires: 11/02/2025 documented as of this encounter Visit Diagnoses Diagnosis Irregular menstrual bleeding- Primary Irregular menstrual cycle documented in this encounter Additional Health Concerns Assessment Noted Time PHQ-9 Depression Total Score: 18 023 2:57 PM EDT documented as of this encounter Care Teams Floor Waxer Relationship Specialty Start Date End Date Juanita Hopson MD 505 [place] [address] PCP - General Family Medicine 09/24/20 documented as of this encounter
--- OUTSIDE RECORDS SUMMARY | 2024-11-09 09:57 | XMS_ITS | Encounter Summary ---
Author Organization [employer] [facility] Address [address] [place] [address] Care Team Providers Care Architecture Department Chair Name Role Phone Juanita Hopson MD Primary Care Provider [phone] Reason for Visit * Reason Comments Med Change Request Encounter Details Date Type Department Care Team ([facility] Contact Info) Description 09/14/2022 Refill [facility] MEDICINE [address] [place], [place] [phone] Juanita Hopson MD 505 [place] [address] Primary insomnia Social History Tobacco Use Types [...] Info) Description 11/21/2024 9:00 AM EDT Telemedicine [facility] CHC MED & PEDS 505 [place], [place] [phone] Juanita Hopson MD 505 [place] [address] documented as of this encounter Visit Diagnoses Diagnosis Primary insomnia Persistent disorder of initiating or maintaining sleep documented in this encounter Care Teams Architecture Department Chair Relationship Specialty Start Date End Date Juanita Hopson MD [address] [place] [address] PCP - General Family Medicine 09/24/20 documented as of this encounter
--- OUTSIDE RECORDS SUMMARY | 2024-11-09 09:57 | XMS_ITS | Encounter Summary ---
Author Organization [employer] [facility] Address [address] [place] [address] 7 [place] [address] Care Team Providers Care Intake Worker Name Role Phone Juanita Hopson MD Primary Care Provider [phone] Reason for Visit * Reason Onset Date Comments Nurse Triage 06/05/2024 Encounter Details Date Type Department Care Team ([facility] st Contact Info) Description 06/05/2024 Telephone [facility] CHC MED & PEDS 505 [place] [address] Juanita Hopson MD 505 [place] [address] Nurse Triage Social History Tobacco Use Types [...] days. ASK apt with TACO Moe today [id number]. Pt is advised to use tylenol/motrin for [...] Upcoming Encounters Date Type Department Care Team ([facility] st Contact Info) Description 11/21/2024 9:00 AM EDT Telemedicine [facility] MED & PEDS 505 [place], [place] [phone] Juanita Hopson MD 505 [place], [place] [phone] documented as of this encounter Visit Diagnoses Not on filedocumented in this encounter Additional Health Concerns Assessment Noted Time PHQ-9 Depression Total Score: 18 023 2:57 PM EDT documented as of this encounter Care Teams Intake Worker Relationship Specialty Start Date End Date Juanita Hopson MD 505 [place] [address] PCP - General Family Medicine 09/24/20 documented as of this encounter
--- OUTSIDE RECORDS SUMMARY | 2024-11-09 09:57 | XMS_ITS | Encounter Summary ---
Author Organization [employer] Address [address] [place] [address] 7 [place] [address] Care Team Providers Care Medical Illustrator Name Role Phone Juanita Hopson MD Primary Care Provider [phone] Reason for Visit * Reason Onset Date Comments Medication PA 07/09/2023 Encounter Details Date Type Department Care Team ([facility] st Contact Info) Description 07/09/2023 Telephone [facility] CHC MED & PEDS 505 [place], [place] [phone] Juanita Hopson MD 505 [place] [address] Medication PA Social History Tobacco Use Types [...] on medication PA Please contact pt @ [phone] * Telephone Encounter - Hilda Valdez LPN - 07/09/2023 3:02 PM EST Please review message below , and advise * Telephone Encounter - Salvador Contreras - 07/09/2023 10:51 AM EST Tc from pt stating that medication DULoxetine HCl 30 MG Capsule Delayed Release Sprinkle won't be refilled at Pharmacy and does not know why. Gis Consultant contacted Pharmacy and Pharmacy advised medicationNeeded a PA. Please contact Pt @ [phone] documented in this encounter Plan of Treatment Upcoming Encounters Date Type Department Care Team (Late st Contact Info) Description 11/21/2024 9:00 AM EDT Telemedicine [facility] CHC MED & PEDS [address] [place] [address] Juanita Hopson MD 505 [place] [address] documented as of this encounter Visit Diagnoses Not on filedocumented in this encounter Additional Health Concerns Assessment Noted Time PHQ-9 Depression Total Score: 18 023 2:57 PM EDT documented as of this encounter Care Teams Medical Illustrator Relationship Specialty Start Date End Date Juanita Hopson MD 505 [place] [address] PCP - General Family Medicine 09/24/20 documented as of this encounter
--- OUTSIDE RECORDS SUMMARY | 2024-11-09 09:57 | XMS_ITS | Encounter Summary ---
Author Organization [employer] [facility] Address [address] [place] [address] 7 [place] [address] Care Team Providers Care Access Services Representative Name Role Phone Juanita Hopson MD Primary Care Provider [phone] Reason for Visit * Reason Comments Med Change Request Encounter Details Date Type Department Care Team ([facility] Contact Info) Description 09/14/2022 Refill [facility] CHC MED & PEDS [address] [place] [address] Juanita Hopson MD [address] [place] [address] Primary insomnia Social History Tobacco Use Types [...] Upcoming Encounters Date Type Department Care Team ([facility] Contact Info) Description 11/21/2024 9:00 AM EDT Telemedicine [facility] CHC MED & PEDS [address] [place], [place] [phone] Juanita Hopson MD [address] [place] [address] documented as of this encounter Visit Diagnoses Diagnosis Primary insomnia Persistent disorder of initiating or maintaining sleep documented in this encounter Care Teams Access Services Representative Relationship Specialty Start Date End Date Juanita Hopson MD [address] [place] [address] PCP - General Family Medicine 09/24/20 documented as of this encounter
--- OUTSIDE RECORDS SUMMARY | 2024-11-09 09:57 | XMS_ITS | Encounter Summary ---
Author Organization [employer] [facility] Address [address] [place] [address] 7 [place] [address] Care Team Providers Care Cut Off Saw Operator Name Role Phone Juanita Hopson MD Primary Care Provider [phone] Reason for Visit * Reason Onset Date Comments US PELVIS ORDER 11/08/2024 Encounter Details Date Type Department Care Team (Late st Contact Info) Description 11/08/2024 Telephone [employer] 230 [place] [address] Jeffrey Sanchez MD 505 [place] [address] US PELVIS ORDER Social History Tobacco Use Types Packs/Day Years [...] encounter Miscellaneous Notes * Telephone Encounter - Jeffrey Sanchez MD - 11/08/2024 12:35 PM EDT Please inform me of what code to use. * Telephone Encounter - Lashaun Smith - 11/08/2024 10:50 AM EDT Incoming fax from [facility], Please provide updated order with US pelvic complete. documented in this encounter Plan of Treatment Upcoming Encounters Date Type Department Care Team (Late st Contact Info) Description 11/21/2024 9:00 AM EDT Telemedicine [facility] MED & PEDS 505 [place] [address] Juanita Hopson MD 505 [place] [address] documented as of this encounter Visit Diagnoses Not on filedocumented in this encounter Additional Health Concerns Assessment Noted Time PHQ-9 Depression Total Score: 18 023 2:57 PM EDT documented as of this encounter Care Teams Cut Off Saw Operator Relationship Specialty Start Date End Date Juanita Hopson MD 505 [place] [address] PCP - General Family Medicine 09/24/20 documented as of this encounter
--- OUTSIDE RECORDS SUMMARY | 2024-11-09 09:57 | XMS_ITS | Clinical Summary ---
Author Organization [facility] Address [address] [place] [address] Care Team Providers Care Exit Booth Agent Name Role Phone Juanita Hopson MD Primary Care Provider Social History Tobacco Use Types Packs/Day Years [...] (1 - 3-dose series) 2016 Meningococcal B Vaccine (1 o f 2 - Standard) 2017 DTaP,Tdap,and Td Vaccines [...] age to complete this topic Care Teams Exit Booth Agent Relationship Specialty Start Date End Date Juanita Hopson MD [address] [place] [phone] PCP - General 07/02/21
--- OUTSIDE RECORDS SUMMARY | 2024-11-09 09:57 | XMS_ITS | Encounter Summary ---
Author Organization [employer] [facility] Address [address] [place] [address] 7 [place] [address] Care Team Providers Care Supervisor Wire Rope Fabrication Name Role Phone Juanita Hopson MD Primary Care Provider [phone] Encounter Details Date Type Department Care Team (Latest Contact Info) Description 11/06/2024 Travel Social History Tobacco Use Types Packs/Day [...] Info) Description 11/21/2024 9:00 AM EDT Telemedicine [facility] CHC MED & PEDS [address] [place], [place] [phone] Juanita Hopson MD 505 [place], [place] [phone] documented as of this encounter Visit Diagnoses Not on filedocumented in this encounter Additional Health Concerns Assessment Noted Time PHQ-9 Depression Total Score: 18 023 2:57 PM EDT documented as of this encounter Care Teams Supervisor Wire Rope Fabrication Relationship Specialty Start Date End Date Juanita Hopson MD [address] [place] [address] PCP - General Family Medicine 09/24/20 documented as of this encounter
--- OUTSIDE RECORDS SUMMARY | 2024-11-09 09:57 | XMS_ITS | Encounter Summary ---
Author Organization [employer] [facility] Address [address] [place] [address] 7 [place] [address] Care Team Providers Care Field Irrigation Worker Name Role Phone Juanita Hopson MD Primary Care Provider [phone] Encounter Details Date Type Department Care Team (Latest Contact Info) Description 11/09/2024 Travel Social History Tobacco Use Types Packs/Day [...] 11/21/2024 9:00 AM EDT Telemedicine [facility] CHC MED & PEDS 505 [place], [place] [phone] Juanita Hopson MD 505 [place], [place] [phone] documented as of this encounter Visit Diagnoses Not on filedocumented in this encounter Additional Health Concerns Assessment Noted Time PHQ-9 Depression Total Score: 18 023 2:57 PM EDT documented as of this encounter Care Teams Field Irrigation Worker Relationship Specialty Start Date End Date Juanita Hopson MD [address] [place] [address] PCP - General Family Medicine 09/24/20 documented as of this encounter
--- OUTSIDE RECORDS SUMMARY | 2024-11-09 09:57 | XMS_ITS | Encounter Summary ---
Author Organization [employer] Address [address] [facility] 7 [place] [address] Care Team Providers Care Commodity Supervisor Name Role Phone Juanita Hopson MD Primary Care Provider [phone] Reason for Visit * Reason Onset Date Comments Results 12/20/2023 Encounter Details Date Type Department Care Team ([facility] st Contact Info) Description 12/20/2023 Telephone [facility] MEDICINE [address] [place] [address] Juanita Hopson MD [address] [place] [address] Results Social History Tobacco Use Types Packs/Day [...] done. Pt stated it was done at [facility] Radiology and is anxious for [...] Upcoming Encounters Date Type Department Care Team ([facility] st Contact Info) Description 11/21/2024 9:00 AM EDT Telemedicine [facility] MED & PEDS 505 [place] [address] Juanita Hopson MD 505 [place] [address] documented as of this encounter Visit Diagnoses Not on filedocumented in this encounter Additional Health Concerns Assessment Noted Time PHQ-9 Depression Total Score: 18 023 2:57 PM EDT documented as of this encounter Care Teams Commodity Supervisor Relationship Specialty Start Date End Date Juanita Hopson MD 505 [place] [address] PCP - General Family Medicine 09/24/20 documented as of this encounter
--- OUTSIDE RECORDS SUMMARY | 2024-11-09 09:57 | XMS_ITS | Encounter Summary ---
Author Organization [employer] Address [address] [facility] 7t [place] [address] Care Team Providers Care Clothing Trades Workers Name Role Phone Juanita Hopson MD Primary Care Provider [phone] Reason for Visit * Reason Comments Gynecologic Exam Encounter Details Date Type Department Care Team ([facility] st Contact Info) Description 11/09/2024 9:30 AM EDT Procedure Visit [facility] CHC MED & PEDS [address] [place] [address] Gina Rojas, [facility] 230 [place] [address] Arrived Social History Tobacco Use Types Packs/Day Years [...] Mass Index 41.96 11/09/2024 9:39 AM EDT documented in this encounter Plan of Treatment Upcoming Encounters Date Type Department Care Team (Late st Contact Info) Description 11/21/2024 9:00 AM EDT Telemedicine [facility] MED & PEDS 505 [place] [address] Juanita Hopson MD 505 [place] [address] documented as of this encounter Visit Diagnoses Not on filedocumented in this encounter Additional Health Concerns Assessment Noted Time PHQ-9 Depression Total Score: 18 023 2:57 PM EDT documented as of this encounter Care Teams Clothing Trades Workers Relationship Specialty Start Date End Date Juanita Hopson MD 505 [place] [address] PCP - General Family Medicine 09/24/20 documented as of this encounter
[2024-11-09 14:42] LABS: MANUAL DIFF FLAG NO
[2024-11-09 14:50] LABS: Basophils Absolute Auto 0.1 X10*3/uL (0.0-0.2); Basophils Percent Auto 0.6 % (0-2); Eosinophils Absolute Auto 0.1 X10*3/uL (0.0-0.4); Eosinophils Percent Auto 0.7 % (0-4); Hematocrit 38.4 % (37.0-47.0); Imm Gran Abs Auto 0.03 X10*3/uL (0.00-0.03); Imm Gran Pct Auto 0.3 % (0.0-0.4); Lymphocytes Absolute Auto 2.4 X10*3/uL (1.2-4.9); Lymphocytes Percent Auto 25.7 % (20-40); Mean Corpuscular HGB Conc 33.9 g/dl (31.0-35.0); Mean Corpuscular Hemoglobin 27.4 pg (27.0-33.0); Mean Corpuscular Volume 80.8 fL (80.0-98.0); Mean Platelet Volume 10.3 fL (9.4-12.3); Monocytes Absolute Auto 0.7 X10*3/uL (0.1-1.2); Monocytes Percent Auto 6.9 % (2-11); Neutrophils Absolute Auto 6.2 x10*3/uL (2.0-8.3); Neutrophils Percent Auto 65.8 % (45-73); Platelet Count 352 X10*3/uL (160-400); Red Blood Count 4.75 X10*6/uL (4.20-5.50); Red Cell Distribution Width 14.6 % (11.0-16.0); White Blood Count 9.5 X10*3/uL (4.8-10.8)
== END 2024-11-09 09:15 | disposition home or self-care (01) ==
LOC: HO.CHCLDS 09:14
PROVIDERS: Visit Provider Internal Medicine
DX: N92.6 Irregular menstruation, unspecified (principal)
CPT/HCPCS: 36415; 85025

== ENCOUNTER 2024-11-09 14:42 | Outpatient (REF) | payer MEDICAID, SELFPAY ==
--- OUTSIDE RECORDS SUMMARY | 2024-11-09 17:21 | XMS_ITS | Encounter Summary ---
Author Organization [employer] [facility] Address [address] [place] [place] [address] 7t [place] [address] Care Team Providers Care Labor And Delivery Nurse Name Role Phone Juanita Hopson MD Primary Care Provider [phone] Reason for Visit * Reason Comments Med Change Request Encounter Details Date Type Department Care Team (Late Contact Info) Description 11/09/2023 Refill [facility] CHC MED & PEDS 505 [place] [address] Sarah Smith MD 505 [place] [address] Social History Tobacco Use Types Packs/Day Years [...] Info) Description 11/21/2024 9:00 AM EDT Telemedicine [facility] CHC MED & PEDS 505 [place] [address] Juanita Hopson MD 505 [place] [address] documented as of this encounter Visit Diagnoses Not on filedocumented in this encounter Additional Health Concerns Assessment Noted Time PHQ-9 Depression Total Score: 18 023 2:57 PM EDT documented as of this encounter Care Teams Labor And Delivery Nurse Relationship Specialty Start Date End Date Juanita Hopson MD 505 [place] [address] PCP - General Family Medicine 09/24/20 documented as of this encounter
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
--- OUTSIDE RECORDS SUMMARY | 2024-11-09 17:21 | XMS_ITS | Encounter Summary ---
Author Organization [employer] [facility] Address [address] [place] [address] 7 [place] [address] Care Team Providers Care Environmental Auditor Name Role Phone Juanita Hopson MD Primary Care Provider [phone] Encounter Details Date Type Department Care Team [...] Info) Description 11/21/2024 9:00 AM EDT Telemedicine [facility] CHC MED & PEDS 505 [place], [place] [phone] Juanita Hopson MD 505 [place], [place] [phone] documented as of this encounter Visit Diagnoses Not on filedocumented in this encounter Additional Health Concerns Assessment Noted Time PHQ-9 Depression Total Score: 18 023 2:57 PM EDT documented as of this encounter Care Teams Environmental Auditor Relationship Specialty Start Date End Date Juanita Hopson MD [address] [place] [address] PCP - General Family Medicine 09/24/20 documented as of this encounter
--- OUTSIDE RECORDS SUMMARY | 2024-11-09 17:21 | XMS_ITS | Encounter Summary ---
Author Organization [employer] [facility] Address [address] [place] [address] 7 [place] [address] Care Team Providers Care Magneto Specialist Name Role Phone Juanita Hopson MD Primary Care Provider [phone] Encounter Details Date Type Department Care Team [...] 11/21/2024 9:00 AM EDT Telemedicine [facility] CHC MED & PEDS [address] [place], [place] [phone] Juanita Hopson MD 505 [place], [place] [phone] documented as of this encounter Visit Diagnoses Not on filedocumented in this encounter Additional Health Concerns Assessment Noted Time PHQ-9 Depression Total Score: 18 023 2:57 PM EDT documented as of this encounter Care Teams Magneto Specialist Relationship Specialty Start Date End Date Juanita Hopson MD [address] [place] [address] PCP - General Family Medicine 09/24/20 documented as of this encounter
--- OUTSIDE RECORDS SUMMARY | 2024-11-09 17:21 | XMS_ITS | Encounter Summary ---
Author Organization [employer] [facility] Address [address] [place] [address] 7 [place] [address] Care Team Providers Care Civil Engineering Drafter Name Role Phone Juanita Hopson MD Primary Care Provider [phone] Reason for Visit * Reason Comments Med Change Request Encounter Details Date Type Department Care Team ([facility] Contact Info) Description 09/14/2022 Refill [facility] CHC MED & PEDS [address] [place] [address] Juanita Hopson MD [address] [place] [address] Primary insomnia Social History Tobacco Use Types [...] Upcoming Encounters Date Type Department Care Team ([facility] Contact Info) Description 11/21/2024 9:00 AM EDT Telemedicine [facility] CHC MED & PEDS [address] [place], [place] [phone] Juanita Hopson MD [address] [place] [address] documented as of this encounter Visit Diagnoses Diagnosis Primary insomnia Persistent disorder of initiating or maintaining sleep documented in this encounter Care Teams Civil Engineering Drafter Relationship Specialty Start Date End Date Juanita Hopson MD [address] [place] [address] PCP - General Family Medicine 09/24/20 documented as of this encounter
--- OUTSIDE RECORDS SUMMARY | 2024-11-09 17:21 | XMS_ITS | Encounter Summary ---
Author Organization [facility] Address [address] [place] [address] 7t [place] [address] Care Team Providers Care Senior Database Administrator Name Role Phone Juanita Hopson MD Primary Care Provider [phone] Reason for Referral * Imaging (Urgent) - Authorized Specialty Diagnoses / Procedures Referred By Contac t Referred To Contact Radiology Diagnoses Irregular menstrual bleeding Procedures Us Pelvis complete Gina Rojas CNM [address] [place] [address] Phone: tel: fax: [address] Phone: tel: fax: Referral ID Status Reason Start Date Expiration Date V isits Requested Visits Authorized [id number] Authorized 11/09/2024 11/09/2025 1 1 Reason for Visit * Reason Comments Gynecologic Exam Encounter Details Date Type Department Care Team (Latest Contact Info) Description 11/09/2024 9:30 AM EDT Procedure Visit [facility] [address] [place] [address] Gina Rojas CNM [address] [place] [address] Encounter for contraceptive management, unspecified type (Primary Dx); Irregular menstrual bleeding; Routine cervical smear; Screening examination for venereal disease Social History Tobacco Use Types Packs/Day Years [...] 9:39 AM EDT documented in this encounter Progress Notes * Gina Rojas CNM - 11/09/2024 9:30 AM EDT Subjective Patient ID: Lori Garcia is a 24 y.o. female who presents for Gynecologic Exam. Here with boyfriend Ammon. Wanted IUD, is being worked up for AUB first. Typically monthly menses,x5 to 7 days very heavy. Used 7-8 pads a day. Last normal period was in September, states had spotting/light bleeding in September with some nausea and vomiting. HCG negative today. Normal TSH and H&Hearlier this month. Elevated white count had repeat CBC today. Pelvic ultrasound ordered, appointment pending. Has not had a pap smear, agreeable to pap smear and infection tests today. Patient seen in conjunction with [employer] Ybarra student. I was present for and confirmed all pertinent elements in the history, exam, assessment of the patient, and the plan of care, and agree with all findings. Gynecologic Exam The patient's pertinent negatives include no vaginal discharge. Review of Systems Genitourinary: Positive for menstrual problem. Negative for vaginal bleeding, vaginal discharge andvaginal pain. Objective BP 135/81 (BP Location: Left arm, Patient Position: Sitting, BP Cuff Size: Large adult) Pulse 99 Temp 98.2 ??F (36.8 ??C) (Oral) Resp 20 Ht 5' 2 (1.575 m) Wt 229 lb 6.4 oz (104 kg) LMP 10/19/2024 (Exact Date) SpO2 98% BMI 41.96 kg/m?? Physical Exam Exam conducted with a sports team manager present (Gina Rojas CNM). Constitutional: Appearance: Normal appearance. Genitourinary: General: Normal vulva. Labia: Right: No rash, tenderness, lesion or injury. Left: No rash, tenderness, lesion or injury. Vagina: Normal. No signs of injury and foreign body. No vaginal discharge, erythema, tenderness, bleeding, lesions or prolapsed vaginal kimball. Cervix: Normal. No cervical motion tenderness, discharge, friability, lesion, erythema, cervical bleeding or eversion. Uterus: Normal. Not deviated, not enlarged, not fixed, not tender and no uterine prolapse. Adnexa: Right adnexa normal and left adnexa normal. Right: No mass, tenderness or fullness. Left: No mass, tenderness or fullness. Comments: Limited view of cervix Neurological: Mental Status: She is alert. Psychiatric: Mood and Affect: Mood normal. Behavior: Behavior normal. Assessment/Plan Diagnoses and all orders for this visit: Encounter for contraceptive management, unspecified type - POCT Urine Reviewed best practice to complete workup for AUB, prior to IUD. She understands and would like to use condoms for now. Has condoms at home, declines today, declines EC but aware of standing order. Progestin IUD would be better fit than copper based on heavy menses. Will schedule once workup complete. Irregular menstrual bleeding Will have [place] fax ultrasound order, let us know if not contacted by next week. Pelvic complete addedper radiology protocol. Routine cervical smear Initial pap today. Reviewed indications for screening and usual followup. Will contact with results. Repeat 3y if normal. Reviewed that minor cellular changes are common, and if these are noted, we will repeat pap in 1y. Screening examination for venereal disease Pap based chlamydia and gonorrhea and trichomoniasis sent. documented in this encounter Plan of Treatment Upcoming Encounters Date Type Department Care Team ([facility] st Contact Info) Description 11/21/2024 9:00 AM EDT Telemedicine [facility] [address] [place], [place] [phone] Juanita Hopson MD [address] [place] [address] Scheduled Orders Name Type Priority Associated Diagnoses Orde r Schedule Pap Smear Pathology and Cytology Routine Routine cervical smear Ordered: 11/09/2024 STI testing add on (NG, CT, Trich) Pathology and Cytology Routine Screening examination for venereal disease Ordered: 11/09/2024 Us Pelvis complete Imaging Urgent Irregular menstrual bleeding Expected: 11/09/2024, Expires: 11/09/2025 documented as of this encounter Procedures Procedure Name Priority Date/Time Associated Diagnosis Comments POCT , URINE Routine 11/09/2024 9:58 AM EDT Encounter for contraceptive management, unspecified type documented in this encounter Results * POCT Urine (11/09/2024 9:58 AM EDT) Preg Test, Ur Negative Negative, Indeterminate, None Detected, Invalid, Specimen unsatisfactory for evaluation, Weakly Positive QC Media Lot # [id number] Lot# Expiration Date ,124 Urine 11/09/2024 9:58 AM EDT Gina Rojas CNM POINT OF CARE TEST ENTER/ EDIT ORDERABLES Final Result documented in this encounter Visit Diagnoses Diagnosis Encounter for contraceptive management, unspecified type- Primary Irregular menstrual bleeding Irregular menstrual cycle documented in this encounter Additional Health Concerns Assessment Noted Time PHQ-9 Depression Total Score: 18 023 2:57 PM EDT documented as of this encounter Care Teams Senior Database Administrator Relationship Specialty Start Date End Date Juanita Hopson MD [address] [place] [address] PCP - General Family Medicine 09/24/20 documented as of this encounter
--- OUTSIDE RECORDS SUMMARY | 2024-11-09 17:21 | XMS_ITS | Encounter Summary ---
Author Organization [facility] Address [address] [place] [address] Care Team Providers Care Finish Repairer Name Role Phone Juanita Hopson MD Primary Care Provider [phone] Reason for Visit * Reason Comments Med Change Request Encounter Details Date Type Department Care Team ([facility] Contact Info) Description 09/14/2022 Refill [facility] [address] [place], [place] [phone] Juanita Hopson MD [address] [place] [address] Primary insomnia Social History Tobacco Use Types [...] Info) Description 11/21/2024 9:00 AM EDT Telemedicine [facility] [address] [place], [place] [phone] Juanita Hopson MD 505 [place] [address] documented as of this encounter Visit Diagnoses Diagnosis Primary insomnia Persistent disorder of initiating or maintaining sleep documented in this encounter Care Teams Finish Repairer Relationship Specialty Start Date End Date Juanita Hopson MD [address] [place] [address] PCP - General Family Medicine 09/24/20 documented as of this encounter
--- OUTSIDE RECORDS SUMMARY | 2024-11-09 17:21 | XMS_ITS | Encounter Summary ---
Author Organization [employer] Address [address] [facility] 7 [place] [address] Care Team Providers Care Kier Tender Name Role Phone Juanita Hopson MD Primary Care Provider [phone] Reason for Visit * Reason Onset Date Comments Results 12/20/2023 Encounter Details Date Type Department Care Team ([facility] st Contact Info) Description 12/20/2023 Telephone [facility] [address] [place] [address] Juanita Hopson MD [address] [place] [phone] Results Social History Tobacco Use Types Packs/Day [...] done. Pt stated it was done at [facility] Radiology and is anxious for [...] Info) Description 11/21/2024 9:00 AM EDT Telemedicine [facility] [address] [place] [address] Juanita Hopson MD [address] [place] [address] documented as of this encounter Visit Diagnoses Not on filedocumented in this encounter Additional Health Concerns Assessment Noted Time PHQ-9 Depression Total Score: 18 023 2:57 PM EDT documented as of this encounter Care Teams Kier Tender Relationship Specialty Start Date End Date Juanita Hopson MD [address] [place] [address] PCP - General Family Medicine 09/24/20 documented as of this encounter
--- OUTSIDE RECORDS SUMMARY | 2024-11-09 17:21 | XMS_ITS | Encounter Summary ---
Author Organization [facility] Address [address] [place] [address] 7 [place] [address] Care Team Providers Care Cnc Applications Engineer Name Role Phone Juanita Hopson MD Primary Care Provider [phone] Reason for Visit * Reason Onset Date Comments US PELVIS ORDER 11/08/2024 Encounter Details Date Type Department Care Team (Late st Contact Info) Description 11/08/2024 Telephone [employer] [address] [place] [address] Jeffrey Sanchez MD 505 [place] [address] US PELVIS ORDER Social History Tobacco Use [...] 11/08/2024 10:50 AM EDT Incoming fax from [facility] Please provide updated order with US pelvic complete. documented in this encounter Plan of Treatment Upcoming Encounters Date Type Department Care Team (Late st Contact Info) Description 11/21/2024 9:00 AM EDT Telemedicine [facility] [address] [place] [address] Juanita Hopson MD [address] [place] [address] documented as of this encounter Visit Diagnoses Not on filedocumented in this encounter Additional Health Concerns Assessment Noted Time PHQ-9 Depression Total Score: 18 023 2:57 PM EDT documented as of this encounter Care Teams Cnc Applications Engineer Relationship Specialty Start Date End Date Juanita Hopson MD [address] [place] [address] PCP - General Family Medicine 09/24/20 documented as of this encounter
--- OUTSIDE RECORDS SUMMARY | 2024-11-09 17:22 | XMS_ITS | Clinical Summary ---
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 Provided space for her to vent and [...] PLAN: 1. Follow up with [facility]: Not recommended for follow-up 2. Patient [...] Description 11/09/2024 9:30 AM EDT Procedure Visit [facility] [address] [place], [place] [phone] Gina Rojas CNM Encounter for contraceptive management, unspecified type (Primary Dx); Irregular menstrual bleeding; Routine cervical smear; Screening examination for venereal disease 11/09/2024 Travel 11/08/2024 Telephone [employer] [facility] [address] [place] [address] Jeffrey Sanchez MD PELVIS ORDER 11/06/2024 Travel 11/03/2024 Telephone [facility] [address] [place] [address] Jeffrey Sanchez MD Results 11/02/2024 Orders Only [facility] [address] [place] [address] Jeffrey Sanchez MD Irregular menstrual bleeding (Primary Dx) 11/01/2024 2:20 PM EDT Office Visit [facility] [address] [place] [address] Jeffrey Sanchez MD Irregular menstrual bleeding (Primary Dx) 11/01/2024 Travel 11/01/[address] [address] Juanita Hopson MD Nurse Triage 10/25/2024 Population Health Risk Score [facility] () [address] [address] Provider, Population Health Generic 10/24/2024 Telephone [facility] [address] [place] [address] Juanita Hopson MD Televisit on 10/24/24 / Unable to Reach 10/24/2024 Travel 10/23/2024 Telephone [facility] [address] [place] [address] Juanita Hopson MD Chart Prep 10/12/[address] [address] Juanita Hopson MD Nurse Triage 10/09/2024 Telephone [facility] [address] [place] [address] Juanita Hopson MD Recall from Last 3 [...] Test 11/03/2023 Pfizer Covid-19 Vaccine 12+ 12/16/2020, 1 Pneumococcal Conjugate PCV 13 12/19/2002 ,03/27/2002,2001,11/07 Pneumococcal [...] Upcoming Encounters Date Type Department Care Team ([facility] st Contact Info) Description 11/21/2024 9:00 AM EDT Telemedicine [facility] [address] [place] [address] Juanita Hopson MD [address] [place] [address] Health Maintenance Due Date Last Done Comments HIV Screening 2001 Lipid Panel 2001 SDOH Screening 2001 Alcohol/Substance Use Screening 2013 Hepatitis C Screening 2019 Chlamydia and Gonorrhea Screening 10/29/2021 10/29/2020 Pap Smear 2022 Depression Monitoring 12/02/2023 06/03/2023, 023 COVID-19 Vaccine ( season) 2024 10/10/2022, 09/27/2021, 12/16/2020, Additional history exists Influenza Vaccine (#1) 2024 , 04/26/2018, 07/20/2017, Additional history exists Depression Screening 06/03/2024 06/03/2023, 06/03/20 23 Family Planning (PISQ) 11/09/2025 11/09/2024 Tobacco Screening 11/09/2025 11/09/2024 DTaP/Tdap/Td Vaccines (7 - Td or Tdap) [...] EDT Encounter for contraceptive management, unspecified type CBC WITH AUTO DIFFERENTIAL Routine 11/09/2024 9:15 AM EDT Irregular menstrual bleeding HCG, TOTAL, QN Routine 11/01/2024 2:56 PM EDT Irregular menstrual bleeding CBC WITH AUTO DIFFERENTIAL Routine 11/01/2024 2:56 PM EDT Irregular menstrual bleeding TSH W/REFLEX TO FT4 Routine 11/01/2024 2 :56 PM EDT Irregular menstrual bleeding [facility] HISTORICAL CHLAMYDIA/N. GONORRHOEAE RNA, TMA, UROGENITAL Routine 10/29/2020 9:48 AM EDT from Last 3 Months or Most Recently Relevant to Health Maintenance Results * POCT Urine (11/09/2024 9:58 AM EDT) Pathologist [facility] Preg Test, Ur Negative Negative, Indeterminate, None Detected, Invalid, Specimen unsatisfactory for evaluation, Weakly Positive QC Media Lot # [id number] Lot# Expiration Date [id number] Urine 11/09/2024 9:58 AM EDT Gina Rojas CNM POINT OF CARE TEST ENTER/ EDIT ORDERABLES Final Result * CBC auto differential (11/09/2024 9:15 AM EDT) Only the most recent of2 resultswithin the time period is included. [facility] White Blood Count 9.5 4.8 - 10.8 X10*3/uL [facility] Red Blood Count 4.75 4.20 - 5.50 X10*6/uL [facility] Hemoglobin 13.0 12.0 - 16.0 g/dl [facility] Hematocrit 38.4 37.0 - 47.0 % [facility] Mean Corpuscular Volume 80.8 80.0 - 98.0 fL [facility] Mean Corpuscular Hemoglobin 27.4 27.0 - 33.0 pg [facility] Mean Corpuscular HGB Conc 33.9 31.0 - 35.0 g/dl [facility] Red Cell Distribution Width 14.6 11.0 - 16.0 % [facility] Platelet Count 352 160 - 400 X10*3/uL [facility] Mean Platelet Volume 10.3 9.4 - 12.3 fL [facility] Neutrophils Percent Auto 65.8 45 - 73 % [facility] Imm Gran Pct Auto 0.3 0.0 - 0.4 % [facility] Lymphocytes Percent Auto 25.7 20 - 40 % [facility] Monocytes Percent Auto 6.9 2 - 11 % [facility] Eosinophils Percent Auto 0.7 0 - 4 % [facility] Basophils Percent Auto 0.6 0 - 2 % [facility] NRBC Pct Auto 0.0 0.0 - 0.2 /100WBC [facility] Neutrophils Absolute Auto 6.2 2.0 - 8.3 x10*3/uL [facility] Imm Gran Abs Auto 0.03 0.00 - 0.03 X10*3/uL [facility] Lymphocytes Absolute Auto 2.4 1.2 - 4.9 X10*3/uL [facility] Monocytes Absolute Auto 0.7 0.1 - 1.2 X10*3/uL [facility] Eosinophils Absolute Auto 0.1 0.0 - 0.4 X10*3/uL [facility] Basophils Absolute Auto 0.1 0.0 - 0.2 X10*3/uL [facility] NRBC Abs Auto 0.000 0.0 - 0.012 X10*3/uL [facility] Blood Venous blood specimen / Unknown 11/09/2024 9:15 AM EDT 11/09/2024 2:37 PM EDT Jeffrey Sanchez MD LAB BLOOD ORDERABLES Final Result Performing Organization Address City/[facility]/ZIP Co de Phone Number [facility] [address] [place] [phone] * TSH W/Reflex to FT4 (11/01/2024 2:56 PM EDT) TSH reflex Free T4 1.37 0.32 - 4.0 uIU/mL [facility] Blood Venous blood specimen / Unknown 11/01/2024 2:56 PM EDT 11/01/2024 5:57 PM EDT Jeffrey Sanchez MD LAB BLOOD ORDERABLES Final Result [facility] [address] [place] [address] [phone] * hCG, Total, Quantitative (11/01/2024 2:56 PM EDT) HCG Quantitative <2 mIU/mL [facility] Comment:Weeks post LMP Appro ximate hCG(Last Menstrual Period) Range (mIU/ml)3 - 4 weeks 9 - 1304 - 5 weeks 75 - 2,6005 - 6 weeks 850 - 20,8006 - 7 weeks 4000 - 100,2007 - 12 weeks 11,500 - 289,41162 - 16 weeks 18,300 - 137,17518 - 29 weeks (2nd trimester) 1,400 - 53,94068 - 41 weeks (3rd trimester) 940 - [...] Sanchez MD LAB BLOOD ORDERABLES Final Result [facility] [address] [place] [address] [phone] * CHLAMYDIA/N. GONORRHOEAE RNA, TMA, UROGENITAL (10/29/2020 9:48 AM EDT) Chlamydia trachomatis RNA, TMA, Urogenital NOT DETECTED NOT DETECTED [facility] COM[facility] SEE COMMENT [facility] Comment: The analytical performance characteristics of this assay, when used to test SurePath(TM) specimens have been determined by [employer]. The modifications have not been cleared or approved by the FDA. This assay has been validated pursuant to the CLIA regulations and is used for clinical purposes. ?? For additional information, please refer to https://education.mafringue.com.Buy.On.Social/faq/BVK923 (This link is being provided for information/ educational purposes only.) ?? Neisseria gonorrhoeae RNA, TMA, Urogenital NOT DETECTED NOT DETECTED [facility] 10/29/2020 9:48 AM EDT us Gina Rojas CNM HISTORICAL/NON ORDERABLE LABS Final Result [facility] [address] from Last 3 Months or Most Recently Relevant to Health Maintenance Insurance [facility] [employer] Care Teams Collar Baster Jumpbasting Relationship Specialty Start Date End Date Juanita Hopson MD [address] [place] [phone] PCP - General Family Medicine 09/24/20
--- OUTSIDE RECORDS SUMMARY | 2024-11-09 17:22 | XMS_ITS | Encounter Summary ---
Author Organization [employer] Address [address] [place] [address] 7 [place] [address] Care Team Providers Care Adult Services Librarian Name Role Phone Juanita Hopson MD Primary Care Provider [phone] Reason for Visit * Reason Onset Date Comments Medication PA 07/09/2023 Encounter Details Date Type Department Care Team ([facility] st Contact Info) Description 07/09/2023 Telephone [facility] [address] [place], [place] [phone] Jaunita Hopson MD [address] [place] [address] Medication PA Social History Tobacco Use Types [...] on medication PA Please contact pt @ [phone] * Telephone Encounter - Hilda Valdez LPN - 07/09/2023 3:02 PM EST Please review message below , and advise * Telephone Encounter - Salvador Contreras - 07/09/2023 10:51 AM EST Tc from pt stating that medication DULoxetine HCl 30 MG Capsule Delayed Release Sprinkle won't be refilled at Pharmacy and does not know why. Tank Tender contacted Pharmacy and Pharmacy advised medicationNeeded a PA. Please contact Pt @ [phone] documented in this encounter Plan of Treatment Upcoming Encounters Date Type Department Care Team (Late st Contact Info) Description 11/21/2024 9:00 AM EDT Telemedicine [facility] [address] [place] [address] Juanita Hopson MD [address] [place] [address] documented as of this encounter Visit Diagnoses Not on filedocumented in this encounter Additional Health Concerns Assessment Noted Time PHQ-9 Depression Total Score: 18 023 2:57 PM EDT documented as of this encounter Care Teams Adult Services Librarian Relationship Specialty Start Date End Date Juanita Hopson MD [address] [place] [address] PCP - General Family Medicine 09/24/20 documented as of this encounter
--- OUTSIDE RECORDS SUMMARY | 2024-11-09 17:22 | XMS_ITS | Encounter Summary ---
Author Organization [facility] Address [address] [place] [address] 7 [place] [address] Care Team Providers Care Supervisor Frame Assembly Name Role Phone Juanita Hopson MD Primary Care Provider [phone] Reason for Visit * Reason Onset Date Comments Nurse Triage 06/05/2024 Encounter Details Date Type Department Care Team ([facility] st Contact Info) Description 06/05/2024 Telephone [facility] [address] [place] [address] Juanita Hopson MD [address] [place] [address] Nurse Triage Social History Tobacco Use Types [...] days. ASK apt with TACO Moe today [id number]. Pt is advised to use tylenol/motrin for [...] You become worse * Telephone Encounter - mAerica Lazaro - 06/05/2024 1:42 PM EST Symptom: Vaginal Bleeding, cramp - Not Outcome: Talk to a nurse or provider within 15 minutes Reason: Heavy bleeding The caller accepted this outcome. documented in this encounter Plan of Treatment Upcoming Encounters Date Type Department Care Team ([facility] st Contact Info) Description 11/21/2024 9:00 AM EDT Telemedicine [facility] [address] [place], [place] [phone] Juanita Hopson MD [address] [place], [place] [phone] documented as of this encounter Visit Diagnoses Not on filedocumented in this encounter Additional Health Concerns Assessment Noted Time PHQ-9 Depression Total Score: 18 023 2:57 PM EDT documented as of this encounter Care Teams Supervisor Frame Assembly Relationship Specialty Start Date End Date Juanita Hopson MD [address] [place] [address] PCP - General Family Medicine 09/24/20 documented as of this encounter
--- OUTSIDE RECORDS SUMMARY | 2024-11-09 17:22 | XMS_ITS | Clinical Summary ---
Author Organization [facility] Address [address] [place] [address] Care Team Providers Care Head Up Operator Helper Name Role Phone Juanita Hopson MD Primary Care Provider [phone] Social History Tobacco Use Types Packs/Day Years [...] age to complete this topic Care Teams Head Up Operator Helper Relationship Specialty Start Date End Date Juanita Hopson MD [address] [place] [phone] PCP - General 07/02/21
--- OUTSIDE RECORDS SUMMARY | 2024-11-09 17:22 | XMS_ITS | Encounter Summary ---
Author Organization [facility] [facility] Address [address] [place] [address] 7t [place] [address] Care Team Providers Care Potline Monitor Name Role Phone Juanita Hopson MD Primary Care Provider [phone] Reason for Visit * Reason Comments Med Change Request Encounter Details Date Type Department Care Team (Late Contact Info) Description 07/29/2023 Refill [facility] [address] [place], [place] [phone] Laura Granados MD [address] [place] [address] Elevated blood pressure reading without diagnosis of [...] 11/21/2024 9:00 AM EDT Telemedicine [facility] [address] [place] [address] Juanita Hopson MD [address] [place] [address] documented as of this encounter Visit Diagnoses Diagnosis Elevated blood pressure reading without diagnosis of hypertension documented in this encounter Additional Health Concerns Assessment Noted Time PHQ-9 Depression Total Score: 18 023 2:57 PM EDT documented as of this encounter Care Teams Potline Monitor Relationship Specialty Start Date End Date Juanita Hopson MD [address] [place] [address] PCP - General Family Medicine 09/24/20 documented as of this encounter
--- OUTSIDE RECORDS SUMMARY | 2024-11-09 17:22 | XMS_ITS | Encounter Summary ---
Author Organization [employer] Address [address] [place] [address] [address] [place] [address] Care Team Providers Care Engine Buildup Mechanic Name Role Phone Juanita Hopson MD Primary Care Provider [phone] Encounter Details Date Type Department Care Team (Late Contact Info) Description 11/02/2024 Orders Only [facility] [address] [place], [place] [phone] Jeffrey Sanchez MD [address] [place], [place] [phone] Irregular menstrual bleeding (Primary Dx) Social History [...] Info) Description 11/21/2024 9:00 AM EDT Telemedicine [facility] [address] [place] [address] Juanita Hopson MD [address] [place] [address] documented as of this encounter Procedures Procedure Name Priority Date/Time Associated Diagnosis Comments CBC WITH AUTO DIFFERENTIAL Routine 11/09/2024 9:15 AM EDT Irregular menstrual bleeding documented in this encounter Results * CBC auto differential (11/09/2024 9:15 AM EDT) White Blood Count 9.5 4.8 - 10.8 X10*3/uL [facility] Red Blood Count 4.75 4.20 - 5.50 X10*6/uL [facility] Hemoglobin 13.0 12.0 - 16.0 g/dl [facility] Hematocrit 38.4 37.0 - 47.0 % [facility] Mean Corpuscular Volume 80.8 80.0 - 98.0 fL [facility] Mean Corpuscular Hemoglobin 27.4 27.0 - 33.0 pg [facility] Mean Corpuscular HGB Conc 33.9 31.0 - 35.0 g/dl [facility] Red Cell Distribution Width 14.6 11.0 - 16.0 % [facility] Platelet Count 352 160 - 400 X10*3/uL [facility] Mean Platelet Volume 10.3 9.4 - 12.3 fL [facility] Neutrophils Percent Auto 65.8 45 - 73 % [facility] Imm Gran Pct Auto 0.3 0.0 - 0.4 % [facility] Lymphocytes Percent Auto 25.7 20 - 40 % [facility] Monocytes Percent Auto 6.9 2 - 11 % [facility] Eosinophils Percent Auto 0.7 0 - 4 % [facility] Basophils Percent Auto 0.6 0 - 2 % [facility] NRBC Pct Auto 0.0 0.0 - 0.2 /100WBC [facility] Neutrophils Absolute Auto 6.2 2.0 - 8.3 x10*3/uL [facility] Imm Gran Abs Auto 0.03 0.00 - 0.03 X10*3/uL [facility] Lymphocytes Absolute Auto 2.4 1.2 - 4.9 X10*3/uL [facility] Monocytes Absolute Auto 0.7 0.1 - 1.2 X10*3/uL [facility] Eosinophils Absolute Auto 0.1 0.0 - 0.4 X10*3/uL [facility] Basophils Absolute Auto 0.1 0.0 - 0.2 X10*3/uL [facility] NRBC Abs Auto 0.000 0.0 - 0.012 X10*3/uL [facility] Blood Venous blood specimen / Unknown 11/09/2024 9:15 AM EDT 11/09/2024 2:37 PM EDT us Jeffrey Sanchez MD LAB BLOOD ORDERABLES Final Result [facility] [address] [place] [phone] documented in this encounter Visit Diagnoses Diagnosis Irregular menstrual bleeding- Primary Irregular menstrual cycle documented in this encounter Additional Health Concerns Assessment Noted Time PHQ-9 Depression Total Score: 18 023 2:57 PM EDT documented as of this encounter Care Teams Engine Buildup Mechanic Relationship Specialty Start Date End Date Juanita Hopson MD [address] [place] [address] PCP - General Family Medicine 09/24/20 documented as of this encounter
[2024-11-11 23:03] LABS: C. trachomatis RNA TMA NOT DETECTED (NOT DETECTED); N. gonorrhoeae RNA TMA NOT DETECTED (NOT DETECTED)
[2024-11-12 11:24] LABS: Trichomonas (NAAT) NOT DETECTED (NOT DETECTED)
== END 2024-11-09 14:43 | disposition home or self-care (01) ==
LOC: HO.CHCLNP 14:42
PROVIDERS: Visit Provider Advanced Practice Midwife
DX: Z12.4 Encounter for screening for malignant neoplasm of cervix (principal); Z11.3 Encounter for screening for infections with a predominantly sexual mode of transmission
CPT/HCPCS: 87491; 87591; 87661; 88175

== ENCOUNTER 2024-11-16 13:14 | Outpatient (REF) | payer MEDICAID, SELFPAY ==
--- NOTE | ~2024-11-16 | US_ITS ---
EXAMINATION: US PELVIS TRANSABDOMINAL AND TRANSVAGINAL HISTORY: Irregular menstrual bleed. COMPARISON: There are no prior studies for comparison. TECHNIQUE: Transabdominal and endovaginal real-time 2D zurita-scale ultrasound was performed. FINDINGS: Uterus: The uterus is normal in size, measuring 8.7 x 4.6 x 5.7 cm. Myometrium has a normal echotexture. No fibroids are identified. Endometrium: The endometrial stripe measures 13 mm in thickness. Right ovary: The right ovary measures 3.5 x 2.5 x 2.7 cm. The right ovary is normal in size and echotexture. Left ovary: The left ovary measures 2.5 x 1.9 x 1.8 cm. The left ovary is normal in size and echotexture. Pelvic fluid: none. US/US pelvic and transvaginal IMPRESSION: Unremarkable pelvic ultrasound. Electronically signed by: Duncan Quezada MD 11/16/2024 01:51 PM EDT
--- OUTSIDE RECORDS SUMMARY | 2024-11-16 16:13 | XMS_ITS | Clinical Summary ---
Author Organization [facility] ity Address [address] [place] [address] Care Team Providers Care Gravity Meter Observer Name Role Phone Juanita Hopson MD Primary Care Provider [phone] Social History Tobacco Use Types Packs/Day Years [...] age to complete this topic Care Teams Gravity Meter Observer Relationship Specialty Start Date End Date Juanita Hopson MD [address] [place] [phone] PCP - General 07/02/21
== END 2024-11-16 13:15 | disposition home or self-care (01) ==
LOC: HO.HMGCX 13:14
PROVIDERS: PCP Pediatrics; Visit Provider Internal Medicine
DX: N92.6 Irregular menstruation, unspecified (principal)
CPT/HCPCS: 76830; 76856

== ENCOUNTER → 2024-11-16 13:16 | Outpatient (BNV) | payer MEDICAID, SELFPAY | PROVIDERS: PCP Pediatrics; Visit Provider Radiology Diagnostic Radiology | DX: N92.1 Excessive and frequent menstruation with irregular cycle (principal) | CPT/HCPCS: 76830; 76856 ==

== ENCOUNTER 2024-11-30 10:12 | Outpatient (REF) | payer MEDICAID, SELFPAY ==
--- OUTSIDE RECORDS SUMMARY | 2024-11-30 11:34 | XMS_ITS | Clinical Summary ---
Author Organization [employer] Address [address] [place] [address] 7[address] [place] [address] Care Team Providers Care Cover Assembler Name Role Phone Juanita Hopson MD Primary Care Provider [phone] Allergies No known active allergies Medications * This document contains information received from the source organization and may not represent a complete record from that organization. Melatonin 5 MG capsuleIndication s:Primary insomnia ONE TABLET HALF HOUR BEFORE BEDTIME 30 capsule 5 023 Active Melatonin 5 MG capsuleIndication s:Primary insomnia Take 1 tab orally qhs 90 capsule 2 023 Active ketotifen (Zaditor) 0.025 % ophthalmic solutionIndicatio ns:Eye irritation Administer 1 drop into the right eye 2 times daily. 5 mL 023 Active hydrocortisone (Anusol-HC) 2.5 % rectal creamIndications: Hemorrhoids, unspecified hemorrhoid type Insert into the rectum 2 times daily. 28 g 023 Active hydrocortisone (West-José Miguel) 0.2 % creamIndications: Allergic contact dermatitis due to other agents Apply topically 2 times daily. 15 g 024 Active hydrOXYzine pamoate (Vistaril) 25 MG capsule Take 1 tab orally tid prn anxiety 90 capsule 025 Active DULoxetine (Cymbalta) [address] capsule Take 1 capsule (40 mg) by mouth Once per day. Do not crush or chew. 30 capsule 1 025 2024 Active DULoxetine (Cymbalta) [address] capsule Take 1 capsule (20 mg) by mouth 2 times daily. Do not crush or chew. 60 capsule 3 025 2024 Active etonogestrel-ethi nyl estradiol (Nuvaring) 0.12-0.015 MG/24HR vaginal ring Insert 1 Ring. into the vagina See administration instructions. 1 every 3 weeks as directed then remove for 1 week 1 Ring. 11 025 2025 Active hydrocortisone 1 % ointment Apply topically 2 times daily for 7 days. 28 g 025 2024 Active fluconazole (Diflucan) 150 MG tablet Take 1 tablet (150 mg) by mouth Once per day for 1 dose. 1 tablet 025 2024 Active cloNIDine (Catapres) 0.1 MG tabletIndications :Primary insomnia TAKE 1 TABLET BY MOUTH AT NIGHT 30 MINUTES BEFORE BED 60 tablet 3 023 2024 Discontinued( Therapy completed) omeprazole (PriLOSEC) [address] capsuleIndication s:Acute gastroenteritis TAKE 1 CAPSULE (20 MG) BY MOUTH BEFORE BREAKFAST. 60 capsule 3 023 2024 Discontinued( Therapy completed) DULoxetine (Cymbalta) [address] capsule Take 1 capsule (20 mg) by mouth 2 times daily. Do not crush or chew. 60 capsule 3 024 2024 Discontinued( Therapy completed) methocarbamol (Robaxin) 750 MG tablet Take 1 tablet (750 mg) by mouth 3 times daily for 10 days. 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 Provided space for her to vent and [...] engagement. PLAN: 1. Follow up with [facility] [place]: Not recommended for follow-up 2. Patient goal is to improve mental health 3. Behavioral Recommendations a. Ind. Therapy referral will be submitted. b. Use of coping skills provide as recommended c. Taking her new medication as prescribed. Obesity 10/02/2022 Attention deficit hyperactiv ity disorder (ADHD), predominantly hyperactive impulsive type 10/02/2022 Encounters Date Type Department Care Team Description 11/30/2024 9:30 AM EDT Procedure Visit [facility] MED & PEDS [address] [place] [address] Clive Chappell CNM Encounter for initial insertion of intrauterine contraceptive device (Primary Dx); Vaginal discharge 11/30/2024 Travel 11/24/2024 Telephone [facility] MED [facility] PEDS [address] [place] [address] Juanita Hopson MD 11/22/2024 Telephone [facility] MED[facility] [address] [place] [address] Juanita Hopson MD Med Refill 11/21/2024 9:00 AM EDT Telemedicine [facility] MED [facility] PEDS [address] [place] [address] Juanita Hopson MD Weight loss (Primary Dx); Severe anxiety; Class 3 severe obesity without serious comorbidity with body mass index (BMI) of 40.0 to 44.9 in adult, unspecified obesity type 11/21/2024 Travel 11/14/2024 Travel 11/09/2024 9:30 AM EDT Procedure Visit [facility]ED[facility] [address] [place] [address] Clive Chappell CNM Encounter for contraceptive management, unspecified type (Primary Dx); Irregular menstrual bleeding; Routine cervical smear; Screening examination for venereal disease 11/09/2024 Travel 11/08/2024 Telephone [facility] [address] [place] [address] Jeffrey Sanchez MD US PELVIS ORDER 11/06/2024 Travel 11/03/2024 Telephone [facility] PEDS [address] [place] [address] Jeffrey Sanchez MD Results 11/02/2024 Orders Only [facility] [address] [place] [address] Jeffrye Sanchez MD Irregular menstrual bleeding (Primary Dx) 11/01/2024 2:20 PM EDT Office Visit [facility] PEDS [address] [place] [address] Jeffrey Sanchez MD Irregular menstrual bleeding (Primary Dx) 11/01/2024 Travel 11/01/2024 Telephone [facility] [address] [place] [address] Juanita Hopson MD Nurse Triage 10/25/2024 Population Health Risk Score [facility] () Department [address] [place] [phone] Provider, Population Health Generic 10/24/2024 Telephone [facility] PEDS [address] [place] [address] Juanita Hopson MD Televisit on 10/24/24 / to Reach 10/24/2024 Travel 10/23/2024 Telephone [facility] P[facility] [address] [place] [address] Juanita Hopson MD Chart Prep 10/12/2024 Telephone [facility] [address] [place] [address] Juanita Hopson MD Nurse Triage 10/09/2024 Telephone [facility] P[facility] [address] [place] [address] Juanita Hopson MD Recall from Last 3 [...] Sign Reading Time Taken Comments Blood Pressure 122/76 11/30/2024 9:44 AM EDT Pulse 78 11/30/2024 9:44 AM EDT Temperature 36.7 ??C (98.1 ??F) 11/30/2024 9:44 AM ED T Respiratory Rate 20 11/30/2024 9:44 AM EDT Oxygen Saturation 98% 11/30/2024 9:44 AM EDT Inhaled Oxygen Concentration - - Weight 104 kg (228 lb 12.8 oz) 11/30/2024 9:44 A M EDT Height 157.5 cm (5' 2 ) 11/30/2024 9:44 AM EDT Body Mass Index 41.85 11/30/2024 9:44 AM EDT Plan of Treatment Upcoming Encounters Date Type Department Care Team (Late st Contact Info) Description 12/20/2024 9:00 AM EDT Telemedicine [facility]ED[facility] [address] [place] [address] Juanita Hopson MD [address] [place] [address] Health Maintenance Due Date Last Done Comments HIV Screening 2001 Lipid Panel 2001 SDOH Screening 2001 Alcohol/Substance Use Screening 2013 Hepatitis C Screening 2019 COVID-19 Vaccine ( season) 2024 10/10/2022, 09/27/2021, 12/16/2020, Additional history exists Influenza Vaccine (#1) 2024 , 04/26/2018, 07/20/2017, Additional history exists Depression Screening 06/03/2024 06/03/2023, 06/03/20 Chlamydia and Gonorrhea Screening 11/09/2025 11/09/2024, 10/29/2020 Family Planning (PISQ) 11/30/2025 11/30/2024 Tobacco Screening 11/30/2025 11/30/2024 DTaP/Tdap/Td Vaccines (7 - Td or Tdap) 05/21/2026 05/21/2016, 02/25/2006, 02/25/2006, Additional history exists Pap Smear 11/10/2027 11/09/2024 Zoster Vaccines (1 of 2) 2051 RSV [...] Name Priority Date/Time Associated Diagnosis Comments POCT WET MOUNT/GANESH Routine 11/30/2024 10 :27 AM EDT Vaginal discharge US PELVIS TRANSVAGINAL Routine 11/16/2024 1:21 PM EDT Irregular menstrual bleeding POCT , URINE Routine 11/09/2024 9:58 AM EDT Encounter for contraceptive management, unspecified type CBC WITH AUTO DIFFERENTIAL Routine 11/09/2024 9:15 AM EDT Irregular menstrual bleeding CHLAMYDIA/N. GONORRHOEAE AND T. VAGINALIS RNA, QUAL,TMA Routine 11/09/2024 12:00 AM EDT Screening examination for venereal disease PAP SMEAR Routine 11/09/2024 12:00 AM EDT Routine cervical smear HCG, TOTAL, QN Routine 11/01/2024 2:56 PM EDT Irregular menstrual bleeding CBC WITH AUTO DIFFERENTIAL Routine 11/01/2024 2:56 PM EDT Irregular menstrual bleeding TSH W/REFLEX TO FT4 Routine 11/01/2024 2 :56 PM EDT Irregular menstrual bleeding from Last 3 Months Results * POCT fern test, vaginal fluid manually resulted (11/30/2024 10:27 AM EDT) GANESH Prep Positive Comment:pos yeast, neg clue, neg trich, pos wbc, neg whiff Vaginal Fluid Vaginal structure / Unknown 11/30/2024 10:27 AM EDT Clive Argueta CNM - 11/30/2024 10:27 AM EDT Vulvovaginal candidiasis Clive Chappell CNM POINT OF CARE TEST ENTER/ EDIT ORDERABLES Final Result * US Pelvis Transvaginal (11/16/2024 1:21 PM EDT) Anatomical Region Laterality Modality Pelvis Ultrasound 11/16/2024 1:21 PM EDT Narrative 11/16/2024 1:54 PM EDT ? [facility] ?[address] ? [place] [address] ? Ultrasound Report ? Signed ? Patient: Lori Garcia B ?MR#: [id number] ?? 84 ? : 2000 ?Acct:[id number] ? Age/Sex: 24 / F ?ADM Date: 04/17/25 ? Loc: HO.HMGCX ? Attending Dr: Jeffrey Sanchez MD ? Ordering Physician: Jeffrey Sanchez MD ?? Date of Service: 11/16/24 ?? Procedure(s): US pelvic and transvaginal ?? Accession Number(s): [id number] ? cc: Jeffrey Sanchez MD; Juanita Hopson MD; CLIVE CHAPPELL CNM ? EXAMINATION: ??US PELVIS TRANSABDOMINAL AND TRANSVAGINAL ? HISTORY: Irregular menstrual bleed. ? COMPARISON: There are no prior studies for comparison. ? TECHNIQUE: ? Transabdominal and endovaginal real-time 2D zurita-scale ultrasound was ?? performed. ? FINDINGS: ? Uterus: ??The uterus is normal in size, measuring 8.7 x 4.6 x 5.7 cm. ? Myometrium has a normal echotexture. ??No fibroids are identified. ? Endometrium: ??The endometrial stripe measures 13 mm in thickness. ? Right ovary: ??The right ovary measures 3.5 x 2.5 x 2.7 cm. ??The right ?? ovary is normal in size and echotexture. ? Left ovary: ?? The left ovary measures 2.5 x 1.9 x 1.8 cm. ??The left ?? ovary is normal in size and echotexture. ? Pelvic fluid: none. ? US/US pelvic and transvaginal ?? IMPRESSION: ?? Unremarkable pelvic ultrasound. ? Electronically signed by: ??Duncan Quezada MD ??11/16/2024 01:51 PM EDT ?? RP ? Dictated By: ?Duncan Quezada MD ? Signed By: ?<Electronically signed by Duncan Quezada MD in OV> ?11/16/24 1351 ? DD/ 1321 ? TD/TT: 11/16/24 1337 ? Materials Planning Analyst: ? Procedure Note Yves Orozco - 11/16/2024 [facility] [address] [place] [address] Ultrasound Report Signed Patient: Lori Garcia BMR#: [id number] : 2000Acct:[id number] Age/Sex: 24 / FADM Date: 11/16/24 Loc: HO.HMGCX Attending Dr: Jeffrey Sanchez MD Ordering Physician: Jeffrey Sanchez MD Date of Service: 11/16/24 Procedure(s): US pelvic and transvaginal Accession Number(s): [id number] cc: Jeffrey Sanchez MD; Juanita Hopson MD; CLIVE CHAPPELL CNM EXAMINATION: US PELVIS TRANSABDOMINAL AND TRANSVAGINAL HISTORY: Irregular menstrual bleed. COMPARISON: There are no prior studies for comparison. TECHNIQUE: Transabdominal and endovaginal real-time 2D zurita-scale ultrasound was performed. FINDINGS: Uterus: The uterus is normal in size, measuring 8.7 x 4.6 x 5.7 cm. Myometrium has a normal echotexture. No fibroids are identified. Endometrium: The endometrial stripe measures 13 mm in thickness. Right ovary: The right ovary measures 3.5 x 2.5 x 2.7 cm. The right ovary is normal in size and echotexture. Left ovary: The left ovary measures 2.5 x 1.9 x 1.8 cm. The left ovary is normal in size and echotexture. Pelvic fluid: none. US/US pelvic and transvaginal IMPRESSION: Unremarkable pelvic ultrasound. Electronically signed by: Duncan Quezada MD 11/16/2024 01:51 PM EDT Dictated By: Duncan Quezada MD Signed By: <Electronically signed by Duncan Quezada MD in OV> 11/16/24 1351 DD/ 1321 TD/TT: 11/16/24 1337 Materials Planning Analyst: us Jeffrey Sanchez MD IMG US PROCEDURES Final Res ult * POCT Urine (11/09/2024 9:58 AM EDT) Preg Test, Ur Negative Negative, Indeterminate, None Detected, Invalid, Specimen unsatisfactory for evaluation, Weakly Positive QC Media Lot # [id number] Lot# Expiration Date [id number] Urine 11/09/2024 9:58 AM EDT Clive Chappell CNM POINT OF CARE TEST ENTER/ EDIT ORDERABLES Final Result * CBC auto differential (11/09/2024 9:15 AM EDT) Only the most recent of2 resultswithin the time period is included. Pathologist [facility] White Blood Count 9.5 4.8 - 10.8 X10*3/uL [facility] Red Blood Count 4.75 4.20 - 5.50 X10*6/uL [facility] Hemoglobin 13.0 12.0 - 16.0 g/dl [facility] Hematocrit 38.4 37.0 - 47.0 % [facility] Mean Corpuscular Volume 80.8 80.0 - 98.0 fL [facility] Mean Corpuscular Hemoglobin 27.4 27.0 - 33.0 pg [facility] Mean Corpuscular HGB Conc 33.9 31.0 - 35.0 g/dl [facility] Red Cell Distribution Width 14.6 11.0 - 16.0 % [facility] Platelet Count 352 160 - 400 X10*3/uL [facility] Mean Platelet Volume 10.3 9.4 - 12.3 fL [facility] Neutrophils Percent Auto 65.8 45 - 73 % [facility] Imm Gran Pct Auto 0.3 0.0 - 0.4 % [facility] Lymphocytes Percent Auto 25.7 20 - 40 % [facility] Monocytes Percent Auto 6.9 2 - 11 % [facility] Eosinophils Percent Auto 0.7 0 - 4 % [facility] Basophils Percent Auto 0.6 0 - 2 % [facility] NRBC Pct Auto 0.0 0.0 - 0.2 /100WBC [facility] Neutrophils Absolute Auto 6.2 2.0 - 8.3 x10*3/uL [facility] Imm Gran Abs Auto 0.03 0.00 - 0.03 X10*3/uL [facility] Lymphocytes Absolute Auto 2.4 1.2 - 4.9 X10*3/uL [facility] Monocytes Absolute Auto 0.7 0.1 - 1.2 X10*3/uL [facility] Eosinophils Absolute Auto 0.1 0.0 - 0.4 X10*3/uL [facility] Basophils Absolute Auto 0.1 0.0 - 0.2 X10*3/uL [facility] NRBC Abs Auto 0.000 0.0 - 0.012 X10*3/uL [facility] Blood Venous blood specimen / Unknown 11/09/2024 9:15 AM EDT 11/09/2024 2:37 PM EDT us Jeffrey Sanchez MD LAB BLOOD ORDERABLES Final Result [facility] [address] [place] [phone] * STI testing add on (NG, CT, Trich) (11/09/2024 12:00 AM EDT) Trichomonas (NAAT) NOT DETECTED NOT DETECTED [facility] Comment:The analytical perfo rmance characteristics of thisassay have been determined by [employer]. Themodifications have not been cleared or approved bythe FDA. This assay has been validated pursuant to theCLIA regulations and is used for clinical purposes.For additional information, please refer tohttp://education.[employer]/faq/Trichomonastma(This link is being provided for information/educational purposes only.)THIS TEST WAS PERFORMED AT:[employer] [place] [phone] GARCIA MD CTNG Ref Lab NOT DETECTED NOT DETECTED [facility] NG Ref Lab NOT DETECTED NOT DETECTED [facility] ThinPrep?? vial Cervix uteri structure / Unknown 11/09/2024 11/10/2024 6:04 AM EDT Narrative [facility] - 11/12/2024 11:24 AM EDT Collection Date: [id number] by: CHRISTY Alexander: Cervix Clive Chappell CNM LAB CYTOLOGY ORDERABLES F inal Result [facility] [address] [place] [phone] [phone] * Pap Smear (11/09/2024 12:00 AM EDT) Swab Cervix uteri structure / Unknown 11/09/2024 11/10/2024 6:04 AM EDT Narrative [facility] - 11/14/2024 9:54 AM EDT ----- ------- Name: Lori Garcia ? Age/Sex: 24/F ? : 2000 Unit#: [id number] ?? Attend Dr: CLIVE CHAPPELL CNM ?Re11/09/24 ?Status: DEP REF ? Location: HO.CHCLNP ? Disch: ? ----- ------- SPEC : [id number] ? RECD: 11/10/24 ? STATUS: ??SOUT ? REQ NUM: [id number] ? KENISHA: 11/09/24 ? SUBM DR: CLIVE CHAPPELL CNM ? ENTERED: ??11/10/24 ?SP TYPE: Pap Smr ?OTHR : ? ORDERED: ??Pap Smear ? Interpretation ?? Satisfactory for evaluation. ?? Negative for intraepithelial lesion or malignancy. ?? No endocervical cells seen. ?Clinical Information LMP:10/19/24 Previous PAP test:initial PAP ? Material Received ?? ThinPrep-Cervical ----- ------- Signed (signature on file) Blake ZEINA Perez (ASCP) 11/14/24 0954 ? ----- ------- ? END OF REPORT ? us Clive Chappell [facility] CYTOLOGY ORDERABLES F inal Result Performing Organization Address [facility] de Phone Number [facility] [address] [place] [address] [phone] * TSH W/Reflex to FT4 (11/01/2024 2:56 PM EDT) Pathologist [facility] TSH reflex Free T4 1.37 0.32 - 4.0 uIU/mL [facility] Blood Venous blood specimen / Unknown 11/01/2024 2:56 PM EDT 11/01/2024 5:57 PM EDT us Jeffrey Sanchez MD LAB BLOOD ORDERABLES Final Result Performing Organization Address [facility] de Phone Number [facility] [address] [place] [phone] * hCG, Total, Quantitative (11/01/2024 2:56 PM EDT) HCG Quantitative <2 mIU/mL [facility] Comment:Weeks post LMP Appro ximate hCG(Last Menstrual Period) Range (mIU/ml)3 - 4 weeks 9 - 1304 - 5 weeks 75 - 2,6005 - 6 weeks 850 - 20,8006 - 7 weeks 4000 - 100,2007 - 12 weeks 11,500 - 289,75639 - 16 weeks 18,300 - 137,10940 - 29 weeks (2nd trimester) 1,400 - 53,45533 - 41 weeks (3rd trimester) 940 - [...] Sanchez MD LAB BLOOD ORDERABLES Final Result [facility] [address] [place] [phone] from Last 3 Months Insurance [facility] [employer] Care Teams Cover Assembler Relationship Specialty Start Date End Date Juanita Hopson MD [address] [place] [phone] PCP - General Family Medicine 09/24/20
--- OUTSIDE RECORDS SUMMARY | 2024-11-30 11:34 | XMS_ITS | Clinical Summary ---
Author Organization [facility] ity Address [address] [place] [address] Care Team Providers Care Correction Officer [employer] [place] [employer] Name Role Phone Juanita Hopson MD Primary Care Provider [phone] Social History Tobacco Use Types Packs/Day Years [...] age to complete this topic Care Teams Correction Officer [place] [facility] [employer] Relationship Specialty Start Date End Date Juanita Hopson MD [address] [place] [phone] PCP - General 07/02/21
--- OUTSIDE RECORDS SUMMARY | 2024-11-30 11:34 | XMS_ITS | Encounter Summary ---
Author Organization [employer] Address [address] [place] [address] Care Team Providers Care Jigman Name Role Phone Juanita Hopson MD Primary Care Provider [phone] Reason for Visit * Reason Onset Date Comments Nurse Triage 06/05/2024 Encounter Details Date Type Department Care Team ([facility] Contact Info) Description 06/05/2024 Telephone [facility] CH[facility] MED & PEDS [address] [place], [place] [phone] Juanita Hopson MD [address] [place] [address] Nurse Triage Social History Tobacco Use Types [...] days. ASK apt with TACO Moe today [email or web address]. Pt is advised to use tylenol/motrin for [...] Upcoming Encounters Date Type Department Care Team ([facility] st Contact Info) Description 12/20/2024 9:00 AM EDT Telemedicine [facility] MED & PEDS [address] [place], [place] [phone] Juanita Hopson MD [address] [place], [place] [phone] documented as of this encounter Visit Diagnoses Not on filedocumented in this encounter Additional Health Concerns Assessment Noted Time PHQ-9 Depression Total Score: 18 023 2:57 PM EDT documented as of this encounter Care Teams Jigman Relationship Specialty Start Date End Date Juanita Hopson MD [address] [place] [address] PCP - General Family Medicine 09/24/20 documented as of this encounter
--- OUTSIDE RECORDS SUMMARY | 2024-11-30 11:34 | XMS_ITS | Encounter Summary ---
Author Organization [employer] Address [address] [place] [address] 7 [place] [address] Care Team Providers Care Machine Ii Cutter Name Role Phone Juanita Hopson MD Primary Care Provider [phone] Encounter Details Date Type Department Care Team (Late Contact Info) Description 11/02/2024 Orders Only [facility] MED & PEDS [address] [place], [place] [phone] Jeffrey Sanchez MD [address] [place] [address] Irregular menstrual bleeding (Primary Dx) Social History [...] Department Care Team (Late Contact Info) Description 12/20/2024 9:00 AM EDT Telemedicine [facility] CHC MED & PEDS [address] [place] [address] Juanita Hopson MD [address] [place] [address] documented as of this encounter Procedures Procedure Name Priority Date/Time Associated Diagnosis Comments CBC WITH AUTO DIFFERENTIAL Routine 11/09/2024 9:15 AM EDT Irregular menstrual bleeding documented in this encounter Results * CBC auto differential (11/09/2024 9:15 AM EDT) White Blood Count 9.5 4.8 - 10.8 X10*3/uL [facility] Red Blood Count 4.75 4.20 - 5.50 X10*6/uL [facility] Hemoglobin 13.0 12.0 - 16.0 g/dl [facility] Hematocrit 38.4 37.0 - 47.0 % [facility] Mean Corpuscular Volume 80.8 80.0 - 98.0 fL [facility] Mean Corpuscular Hemoglobin 27.4 27.0 - 33.0 pg [facility] Mean Corpuscular HGB Conc 33.9 31.0 - 35.0 g/dl [facility] Red Cell Distribution Width 14.6 11.0 - 16.0 % [facility] Platelet Count 352 160 - 400 X10*3/uL [facility] Mean Platelet Volume 10.3 9.4 - 12.3 fL [facility] Neutrophils Percent Auto 65.8 45 - 73 % [facility] Imm Gran Pct Auto 0.3 0.0 - 0.4 % [facility] Lymphocytes Percent Auto 25.7 20 - 40 % [facility] Monocytes Percent Auto 6.9 2 - 11 % [facility] Eosinophils Percent Auto 0.7 0 - 4 % [facility] Basophils Percent Auto 0.6 0 - 2 % [facility] NRBC Pct Auto 0.0 0.0 - 0.2 /100WBC [facility] Neutrophils Absolute Auto 6.2 2.0 - 8.3 x10*3/uL [facility] Imm Gran Abs Auto 0.03 0.00 - 0.03 X10*3/uL [facility] Lymphocytes Absolute Auto 2.4 1.2 - 4.9 X10*3/uL [facility] Monocytes Absolute Auto 0.7 0.1 - 1.2 X10*3/uL [facility] Eosinophils Absolute Auto 0.1 0.0 - 0.4 X10*3/uL [facility] Basophils Absolute Auto 0.1 0.0 - 0.2 X10*3/uL [facility] NRBC Abs Auto 0.000 0.0 - 0.012 X10*3/uL [facility] Blood Venous blood specimen / Unknown 11/09/2024 9:15 AM EDT 11/09/2024 2:37 PM EDT us Jeffrey Sanchez MD LAB BLOOD ORDERABLES Final Result [facility] [address] [place] [address] [phone] documented in this encounter Visit Diagnoses Diagnosis Irregular menstrual bleeding- Primary Irregular menstrual cycle documented in this encounter Additional Health Concerns Assessment Noted Time PHQ-9 Depression Total Score: 18 023 2:57 PM EDT documented as of this encounter Care Teams Machine Ii Cutter Relationship Specialty Start Date End Date Juanita Hopson MD [address] [place] [address] PCP - General Family Medicine 09/24/20 documented as of this encounter
--- OUTSIDE RECORDS SUMMARY | 2024-11-30 11:35 | XMS_ITS | Encounter Summary ---
Author Organization [employer] Address [address] [facility] 7 [place] [address] Care Team Providers Care Manager Of Organizational Development Name Role Phone Juanita Hopson MD Primary Care Provider [phone] Reason for Visit * Reason Onset Date Comments Results 12/20/2023 Encounter Details Date Type Department Care Team ([facility] st Contact Info) Description 12/20/2023 Telephone [facility] MEDICINE [address] [place] [address] Juanita Hopson MD [address] [place] [address] Results Social History Tobacco Use Types Packs/Day [...] that day though pt disagrees and says Ray told her that it was sent earlier. [...] done. Pt stated it was done at [facility] and is anxious for results. Called [facility] Description 12/20/2024 9:00 AM EDT Telemedicine [facility] MED & PEDS [address] [place] [address] Juanita Hopson MD 505 [place] [address] documented as of this encounter Visit Diagnoses Not on filedocumented in this encounter Additional Health Concerns Assessment Noted Time PHQ-9 Depression Total Score: 18 023 2:57 PM EDT documented as of this encounter Care Teams Manager Of Organizational Development Relationship Specialty Start Date End Date Juanita Hopson MD [address] [place] [address] PCP - General Family Medicine 09/24/20 documented as of this encounter
--- OUTSIDE RECORDS SUMMARY | 2024-11-30 11:35 | XMS_ITS | Encounter Summary ---
Author Organization [employer] Address [address] [place] [address] 7 [place] [address] Care Team Providers Care Chalk Tester Name Role Phone Juanita Hopson MD Primary Care Provider [phone] Encounter Details Date Type Department Care Team (Latest Contact Info) Description 11/30/2024 Travel Social History Tobacco Use Types Packs/Day [...] Description 12/20/2024 9:00 AM EDT Telemedicine [facility] CHC MED & PEDS [address] [place] [address] Juanita Hopson MD [address] [place], [place] [phone] documented as of this encounter Visit Diagnoses Not on filedocumented in this encounter Additional Health Concerns Assessment Noted Time PHQ-9 Depression Total Score: 18 023 2:57 PM EDT documented as of this encounter Care Teams Chalk Tester Relationship Specialty Start Date End Date Juanita Hopson MD [address] [place] [address] PCP - General Family Medicine 09/24/20 documented as of this encounter
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
--- OUTSIDE RECORDS SUMMARY | 2024-11-30 11:35 | XMS_ITS | Encounter Summary ---
Author Organization [facility] Address [address] [place] [address] 7 [place] [address] Care Team Providers Care Security Installation Technician Name Role Phone Juanita Hopson MD Primary Care Provider [phone] Reason for Visit * Reason Comments Med Change Request Encounter Details Date Type Department Care Team ([facility] Contact Info) Description 09/14/2022 Refill [facility] CHC MED & PEDS [address] [place] [address] Juanita Hopson MD [address] [place] [address] Primary insomnia Social History Tobacco Use Types [...] Info) Description 12/20/2024 9:00 AM EDT Telemedicine [facility] CHC MED & PEDS [address] [place] [address] Juanita Hopson MD [address] [place] [address] documented as of this encounter Visit Diagnoses Diagnosis Primary insomnia Persistent disorder of initiating or maintaining sleep documented in this encounter Care Teams Security Installation Technician Relationship Specialty Start Date End Date Juanita Hopson MD [address] [place] [address] PCP - General Family Medicine 09/24/20 documented as of this encounter
--- OUTSIDE RECORDS SUMMARY | 2024-11-30 11:35 | XMS_ITS | Encounter Summary ---
Author Organization [facility] Address [address] [place] [address] Care Team Providers Care Claim Review Medical Director Name Role Phone Juanita Hopson MD Primary Care Provider [phone] Reason for Visit * Reason Comments Med Change Request Encounter Details Date Type Department Care Team ([facility] Contact Info) Description 09/14/2022 Refill [facility] MEDICINE [address] [place], [place] [phone] Juanita Hopson MD [address] [place] [address] Primary insomnia Social History Tobacco Use Types [...] Upcoming Encounters Date Type Department Care Team ([facility] Contact Info) Description 12/20/2024 9:00 AM EDT Telemedicine [facility] CHC MED & PEDS [address] [place], [place] [phone] Juanita Hopson MD [address] [place], [place] [phone] documented as of this encounter Visit Diagnoses Diagnosis Primary insomnia Persistent disorder of initiating or maintaining sleep documented in this encounter Care Teams Claim Review Medical Director Relationship Specialty Start Date End Date Juanita Hopson MD [address] [place] [address] PCP - General Family Medicine 09/24/20 documented as of this encounter
--- OUTSIDE RECORDS SUMMARY | 2024-11-30 11:35 | XMS_ITS | Encounter Summary ---
Author Organization [employer] Address [address] [place] [address] 7t [place] [address] Care Team Providers Care Customer Care Team Coach Name Role Phone Juanita Hopson MD Primary Care Provider [phone] Reason for Visit * Reason Comments Procedure Encounter Details Date Type Department Care Team (Latest Contact Info) Description 11/30/2024 9:30 AM EDT Procedure Visit [facility] MED & PEDS [address] [place] [address] Gina Rojas, [facility] [address] [place] [address] Encounter for initial insertion of intrauterine contraceptive device (Primary Dx); Vaginal discharge Social History Tobacco Use Types Packs/Day Years [...] Mass Index 41.85 11/30/2024 9:44 AM EDT documented in this encounter Progress Notes * Gina Rojas CNM - 11/30/2024 9:30 AM EDT Images from the original note were not included. Subjective Patient ID: Lori Garcia is a 24 y.o. female who presents for IUD insertion Originally scheduled for IUD insertion. Would like to defer today. Notes vaginal discharge and irritation x 3 days. Burning when urine touches skin, but no true dysuria. Last sexually active without a condom 6d ago, used withdrawal. Would like to start NuvaRing today and have evaluation for vaginal symptoms. Normal pelvic ultrasound, pap NIL, Gonorrhea/Chlamydia/trichomonas negative 10/2024. Normal CBC 10/2024 (wbc previously elevated). Review of Systems Constitutional: Negative for chills and fever. Genitourinary: Positive for vaginal discharge. Negative for dyspareunia, dysuria, pelvic pain, vaginal bleeding and vaginal pain. Objective BP 122/76 (BP Location: Left arm, Patient Position: Sitting, BP Cuff Size: Large adult) Pulse 78 Temp 98.1 ??F (36.7 ??C) (Oral) Resp 20 Ht 5' 2 (1.575 m) Wt 228 lb 12.8 oz (104 kg) LMP 11/17/2024 (Exact Date) SpO2 98% BMI 41.85 kg/m?? Physical Exam Constitutional: Appearance: Normal appearance. Genitourinary: Labia: Right: Rash present. No tenderness, lesion or injury. Left: Rash present. No tenderness, lesion or injury. Comments: Pallor inner thighs bilaterally, as well as along clitoral rice, upper labia minora. Curdy discharge. Speculum exam deferred. Neurological: Mental Status: She is alert. Psychiatric: Mood and Affect: Mood normal. Behavior: Behavior normal. Assessment/Plan Diagnoses and all orders for this visit: Encounter for initial insertion of intrauterine contraceptive device IUD insertion deferred today at her request. Would like NuvaRing. No contraindications. Reviewed use, common side effects and danger signs. Start today. Backup x 7 days. Report missed menses. If happy with method, ring check 3 months. May return for IUD any time if desired. Vaginal discharge - Bacterial Vaginosis Panel - POCT fern test, vaginal fluid manually resulted Consistent with vulvovaginal candidiasis, although some pallor suggestive of lichen. Will treat yeast today. Prefers pill. Fluconazole x 1. Hydrocortisone for itch relief for next week as needed. Please let me know if no improvement or symptoms worsen. Will contact with bacterial vaginosis swab results. Other orders - etonogestrel-ethinyl estradiol (Nuvaring) 0.12-0.015 MG/24HR vaginal ring; Insert 1 Ring. into the vagina See administration instructions. 1 every 3 weeks as directed then remove for 1 week - hydrocortisone 1 % ointment; Apply topically 2 times daily for 7 days. - fluconazole (Diflucan) 150 MG tablet; Take 1 tablet (150 mg) by mouth Once per day for 1 dose. documented in this encounter Plan of Treatment Upcoming Encounters Date Type Department Care Team ([facility] st Contact Info) Description 12/20/2024 9:00 AM EDT Telemedicine [facility] MED & PEDS [address] [place] [address] Juanita Hopson MD [address] [place] [address] Scheduled Orders Name Type Priority Associated Diagnoses Orde r Schedule Bacterial Vaginosis Panel Microbiology Routine Vaginal discharge Ordered: 11/30/2024 documented as of this encounter Procedures Procedure Name Priority Date/Time Associated Diagnosis Comments POCT WET MOUNT/GANESH Routine 11/30/2024 10 :27 AM EDT Vaginal discharge documented in this encounter Results * POCT fern test, vaginal fluid manually resulted (11/30/2024 10:27 AM EDT) GANESH Prep Positive Comment:pos yeast, neg clue, neg trich, pos wbc, neg whiff Vaginal Fluid Vaginal structure / Unknown 11/30/2024 10:27 AM EDT Impressions Gina Rojas CNM - 11/30/2024 10:27 AM EDT Vulvovaginal candidiasis Gina Rojas CNM POINT OF CARE TEST ENTER/ EDIT ORDERABLES Final Result documented in this encounter Visit Diagnoses Diagnosis Encounter for initial insertion of intrauterine contraceptive device- Primary Vaginal discharge Leukorrhea, not specified as infective documented in this encounter Additional Health Concerns Assessment Noted Time PHQ-9 Depression Total Score: 18 023 2:57 PM EDT documented as of this encounter Care Teams Customer Care Team Coach Relationship Specialty Start Date End Date Juanita Hopson MD [address] [place] [address] PCP - General Family Medicine 09/24/20 documented as of this encounter
--- OUTSIDE RECORDS SUMMARY | 2024-11-30 11:35 | XMS_ITS | Encounter Summary ---
Author Organization [employer] Address [address] [place] [address] [place] [address] Care Team Providers Care Merchandise Flow Associate Name Role Phone Juanita Hopson MD Primary Care Provider [phone] Reason for Visit * Reason Onset Date Comments Medication PA 07/09/2023 Encounter Details Date Type Department Care Team ([facility] Contact Info) Description 07/09/2023 Telephone [facility] CHC MED & PEDS [address] [place], [place] [phone] Juanita Hopson MD [address] [place] [address] Medication PA Social History Tobacco Use Types [...] on medication PA Please contact pt @ [phone] * Telephone Encounter - Hilda Valdez LPN - 07/09/2023 3:02 PM EST Please review message below , and advise * Telephone Encounter - Salvador Contreras - 07/09/2023 10:51 AM EST Tc from pt stating that medication DULoxetine HCl 30 MG Capsule Delayed Release Sprinkle won't be refilled at Pharmacy and does not know why. Manager Employment contacted Pharmacy and Pharmacy advised medicationNeeded a PA. Please contact Pt @ [phone] documented in this encounter Plan of Treatment Upcoming Encounters Date Type Department Care Team (Late st Contact Info) Description 12/20/2024 9:00 AM EDT Telemedicine [facility] CHC MED & PEDS [address] [place] [address] Juanita Hopson MD [address] [place] [address] documented as of this encounter Visit Diagnoses Not on filedocumented in this encounter Additional Health Concerns Assessment Noted Time PHQ-9 Depression Total Score: 18 023 2:57 PM EDT documented as of this encounter Care Teams Merchandise Flow Associate Relationship Specialty Start Date End Date Juanita Hopson MD [address] [place] [address] PCP - General Family Medicine 2/23/21 documented as of this encounter
--- OUTSIDE RECORDS SUMMARY | 2024-11-30 11:35 | XMS_ITS | Encounter Summary ---
Author Organization [employer] [facility] Address [address] [place] [address] 7t [place] [address] Care Team Providers Care Molder Sweep Name Role Phone Juanita Hopson MD Primary Care Provider [phone] Reason for Visit * Reason Comments Med Change Request Encounter Details Date Type Department Care Team (Late Contact Info) Description 11/09/2023 Refill [facility] CHC MED & PEDS [address] [place] [address] Sarah Smith MD [address] [place] [address] Social History Tobacco Use Types Packs/Day Years [...] Info) Description 12/20/2024 9:00 AM EDT Telemedicine [facility] CHC MED & PEDS [address] [place] [address] Juanita Hopson MD [address] [place] [address] documented as of this encounter Visit Diagnoses Not on filedocumented in this encounter Additional Health Concerns Assessment Noted Time PHQ-9 Depression Total Score: 18 023 2:57 PM EDT documented as of this encounter Care Teams Molder Sweep Relationship Specialty Start Date End Date Juanita Hopson MD [address] [place] [address] PCP - General Family Medicine 09/24/20 documented as of this encounter
--- OUTSIDE RECORDS SUMMARY | 2024-11-30 11:35 | XMS_ITS | Encounter Summary ---
Author Organization [facility] Address [address] [place] [address] 7t [place] [address] Care Team Providers Care Machine Puller Name Role Phone Juanita Hopson MD Primary Care Provider [phone] Reason for Visit * Reason Comments Med Change Request Encounter Details Date Type Department Care Team (Late Contact Info) Description 07/29/2023 Refill [facility] CHC MED & PEDS [address] [place] [address] Laura Granados MD [address] [place] [address] Elevated blood pressure reading without diagnosis of [...] Info) Description 12/20/2024 9:00 AM EDT Telemedicine [facility] CHC MED & PEDS [address] [place] [address] Juanita Hopson MD [address] [place] [address] documented as of this encounter Visit Diagnoses Diagnosis Elevated blood pressure reading without diagnosis of hypertension documented in this encounter Additional Health Concerns Assessment Noted Time PHQ-9 Depression Total Score: 18 023 2:57 PM EDT documented as of this encounter Care Teams Machine Puller Relationship Specialty Start Date End Date Juanita Hopson MD [address] [place] [address] PCP - General Family Medicine 09/24/20 documented as of this encounter
[2024-11-30 14:39] LABS: Estimated Average Glucose 108 mg/dL; Hemoglobin A1C 118.4719 umol/L; Hemoglobin A1c % 5.4 % (<6.0); Total Hemoglobin (HGBA1C) 3373.1214 umol/L
[2024-11-30 14:46] LABS: Alanine Aminotransferase 15 U/L (0-31); Albumin Level 4.2 g/dL (3.5-5.0); Alkaline Phosphatase 72 U/L (39-117); Anion Gap 10 (12-20); Aspartate Amino Transferase 25 U/L (5-31); Bilirubin Direct 0.2 mg/dL (0.0-0.5); Bilirubin Total 0.2 mg/dL (0.0-1.0); Blood Urea Nitrogen 6 mg/dL (9-16); Calcium 9.1 mg/dL (8.4-10.2); Carbon Dioxide 23 mmol/L (22-29); Chloride 106 mmol/L (96-108); Cholesterol 173 mg/dL (<200); Estimated Glomerular Filt Rate > 60; Glucose Fasting 89 mg/dL (60-99); HDL Cholesterol 36 mg/dL (>40); LDL Cholesterol Calculated 120 mg/dL (<100); Potassium 3.8 mmol/L (3.3-5.1); Sodium 135 mmol/L (135-145); Total Protein 7.2 g/dL (6.5-8.0); Triglycerides 85 mg/dL (<150)
[2024-11-30 16:03] LABS: Bacterial Vaginosis PCR POSITIVE (Negative); Candida Group PCR DETECTED (Not Detect); Candida glab krusei PCR NOT DETECTED (Not Detect); Trichomonas vaginalis PCR NOT DETECTED (Not Detect)
== END 2024-11-30 10:13 | disposition home or self-care (01) ==
LOC: HO.CHCLDS 10:12
PROVIDERS: Advanced Practice Midwife; Visit Provider Pediatrics
DX: N89.8 Other specified noninflammatory disorders of vagina (principal); R63.4 Abnormal weight loss; F41.9 Anxiety disorder, unspecified; E66.813 Obesity, class 3; Z68.41 Body mass index [BMI] 40.0-44.9, adult
CPT/HCPCS: 36415; 80048; 80061; 80076; 81515; 83036

== ENCOUNTER 2024-12-29 15:36 | Outpatient (REF) | payer MEDICAID, SELFPAY ==
--- OUTSIDE RECORDS SUMMARY | 2024-12-29 15:39 | XMS_ITS | Clinical Summary ---
Author Organization [employer] Address [address] [place] [address] Care Team Providers Care Riveter Helper Name Role Phone Juanita Hopson MD Primary Care Provider Allergies No known active allergies Medications * This document contains information received from the source organization and may not represent a complete record from that organization. Melatonin 5 MG capsuleIndicat ions:Primary insomnia ONE TABLET HALF HOUR BEFORE BEDTIME 30 capsule 5 023 Active Melatonin 5 MG capsuleIndicat ions:Primary insomnia Take 1 tab orally qhs 90 capsule 2 023 Active ketotifen (Zaditor) 0.025 % ophthalmic solutionIndica tions:Eye irritation Administer 1 drop into the right eye 2 times daily. 5 mL 023 Active hydrocortisone (Anusol-HC) 2.5 % rectal creamIndicatio ns:Hemorrhoids , unspecified hemorrhoid type Insert into the rectum 2 times daily. 28 g 023 Active hydrocortisone (West-José Miguel) 0.2 % creamIndicatio ns:Allergic contact dermatitis due to other agents Apply topically 2 times daily. 15 g 024 Active etonogestrel-e thinyl estradiol (Nuvaring) 0.12-0.015 MG/24HR vaginal ring Insert 1 Ring. into the vagina See administration instructions. 1 every 3 weeks as directed then remove for 1 week 1 Ring. 11 025 2025 Active DULoxetine (Cymbalta) [address] capsule Take 1 capsule (20 mg) by mouth 2 times daily. Do not crush or chew. 60 capsule 3 025 2024 Active hydrOXYzine pamoate (Vistaril) 25 MG capsule TAKE 1 CAPSULE BY MOUTH 3 TIMES A DAY NEEDED FOR ANXIETY 90 capsule Active hydrOXYzine pamoate (Vistaril) 25 MG capsule Take 1 tab orally tid prn anxiety 90 capsule 025 2024 Discontinued DULoxetine (Cymbalta) [address] capsule Take 1 capsule (40 mg) by mouth Once per day. Do not crush or chew. 30 capsule 1 025 2024 Discontinued(C ost of medication) DULoxetine (Cymbalta) [address] capsule Take 1 capsule (20 mg) by mouth 2 times daily. Do not crush or chew. 60 capsule 3 025 2024 Discontinued(R eorder (will not trigger notification to Pharmacy)) hydrocortisone 1 % ointment Apply topically 2 times daily for 7 days. 28 g 025 2024 fluconazole (Diflucan) 150 MG tablet Take 1 tablet (150 mg) by mouth Once per day for 1 dose. 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 Provided space for her to vent and [...] (ADHD), predominantly hyperactive impulsive type 10/02/2022 Encounters * This document contains information received from the source organization and may not represent a complete record from that organization. Date Type Department Care Team Description 12/29/2024 Telephone [facility] [address] [place] [address] Juanita Hopson MD 12/25/2024 Refill [facility] [address] [place] [address] Juanita Hopson MD 12/22/[address] [address] Juanita Hopson MD No Show 12/21/[address] [address] Juanita Hopson MD Nurse Triage 12/20/2024 9:00 AM EDT Telemedicine [facility] [address] [place] [address] Juanita Hopson MD Severe anxiety (Primary Dx); Viral upper respiratory illness 12/20/[address] [address] Juanita Hopson MD Nurse Triage 12/20/2024 Travel 11/30/2024 9:30 AM EDT Procedure Visit [facility] [address] [place] [address] Clive Chappell CNM Encounter for initial insertion of intrauterine contraceptive device (Primary Dx); Vaginal discharge 11/30/2024 Travel 11/24/2024 Telephone [facility] [address] [place] [address] Juanita Hopson MD 11/22/2024 [address] [place] [address] Juanita Hopson MD Med Refill 11/21/2024 9:00 AM EDT Telemedicine [facility] [address] [place] [address] Juanita Hopson MD Weight loss (Primary Dx); Severe anxiety; Class 3 severe obesity without serious comorbidity with body mass index (BMI) of 40.0 to 44.9 in adult, unspecified obesity type 11/21/2024 Travel 11/14/2024 Travel 11/09/2024 9:30 AM EDT Procedure Visit [facility] [address] [place] [address] Clive Chappell CNM Encounter for contraceptive management, unspecified type (Primary Dx); Irregular menstrual bleeding; Routine cervical smear; Screening examination for venereal disease 11/09/2024 Travel 11/08/2024 Telephone [facility] [address] [place] [address] Jeffrey Sanchez MD US PELVIS ORDER 11/06/2024 Travel 11/03/2024 Telephone [facility] [address] [place] [address] Jeffrey Sanchez MD Results 11/02/2024 Orders Only [facility] [address] [place] [address] Jeffrey Sanchez MD Irregular menstrual bleeding (Primary Dx) 11/01/2024 2:20 PM EDT Office Visit [facility] [address] [place] [address] Jeffrey Sanchez MD Irregular menstrual bleeding (Primary Dx) 11/01/2024 Travel 11/01/2024 Telephone [facility] [address] [place] [address] Juanita Hopson MD Nurse Triage 10/25/2024 Population Health Risk Score [facility] () Department [address] [place] [phone] Provider, Population Health Generic 10/24/2024 Telephone [facility] [address] [place] [address] Juanita Hopson MD Televisit on 10/24/24 / Unable to Reach 10/24/2024 Travel 10/23/2024 Telephone [facility] [address] [place] [address] Juanita Hopson MD Chart Prep 10/12/2024 Telephone [facility] [address] [place] [address] Juanita Hopson MD Nurse Triage 10/09/2024 Telephone [facility] [address] [place] [address] Juanita Hopson MD Recall from Last 3 Months Immunizations Immunization Administration Dates Next Due DTaP 02/25/2006, 4,03/27/2002,12/19,2001 [...] Health Questionnaire-2 Score 5 06/03/2023 Comments No Intention Date Recorded No desire to become (finding) 0 11/30/2024 Sex and Gender Information Value Date Recorded [...] Care Team (Late st Contact Info) Description 03/22/2025 11:00 AM EDT Office Visit [facility] [address] [place] [address] Juanita Hopson MD [address] [place] [address] Health Maintenance Due Date Last Done Comments HIV Screening 2001 SDOH Screening 2001 Alcohol/Substance Use Screening 2013 Meningococcal B Vaccine (1 of 2 - Standard) 2017 Hepatitis C Screening 2019 Depression Monitoring 12/02/2023 06/03/2023, 023 COVID-19 Vaccine ( season) 2024 10/10/2022, 09/27/2021, 12/16/2020, Additional history exists Influenza Vaccine (#1) 2024 , 04/26/2018, 07/20/2017, Additional history exists Chlamydia and Gonorrhea Screening 11/09/2025 11/09/2024, 10/29/2020 Disability Screening 11/14/2025 11/14/2024 Family Planning (PISQ) 11/30/2025 11/30/2024 Tobacco Screening 11/30/2025 11/30/2024 DTaP/Tdap/Td Vaccines (7 - Td or Tdap) 05/21/2026 05/21/2016, 02/25/2006, 02/25/2006, Additional history exists Pap Smear 11/10/2027 11/09/2024 Lipid Panel 11/30/2029 11/30/2024 Zoster Vaccines (1 of 2) 2051 RSV [...] 11/30/2024 10 :27 AM EDT Vaginal discharge HEPATIC FUNCTION PANEL Routine 11/30/2024 10:14 AM EDT Weight loss Severe anxiety Class 3 severe obesity without serious comorbidity with body mass index (BMI) of 40.0 to 44.9 in adult, unspecified obesity type HEMOGLOBIN A1C Routine 11/30/2024 10:14 AM EDT Weight loss Severe anxiety Class 3 severe obesity without serious comorbidity with body mass index (BMI) of 40.0 to 44.9 in adult, unspecified obesity type BASIC METABOLIC PANEL, FASTING Routine 11/30/2024 10:14 AM EDT Weight loss Severe anxiety Class 3 severe obesity without serious comorbidity with body mass index (BMI) of 40.0 to 44.9 in adult, unspecified obesity type LIPID PANEL, STANDARD Routine 11/30/2024 10:14 AM EDT Weight loss Severe anxiety Class 3 severe obesity without serious comorbidity with body mass index (BMI) of 40.0 to 44.9 in adult, unspecified obesity type BACTERIAL VAGINOSIS PANEL Routine 11/30/2024 10:08 AM EDT Vaginal discharge US PELVIS TRANSVAGINAL [...] / Unknown 11/30/2024 10:27 AM EDT Impressions Clive Chappell CNM - 11/30/2024 10:27 AM EDT Vulvovaginal candidiasis Clive Chappell CNM POINT OF CARE TEST ENTER/ EDIT ORDERABLES Final Result * (ABNORMAL) Basic Metabolic Panel, Fasting (11/30/2024 10:14 AM EDT) Sodium 135 135 - 145 mmol/L [facility] Potassium 3.8 3.3 - 5.1 mmol/L [facility] Chloride 106 96 - 108 mmol/L [facility] Carbon Dioxide 23 22 - 29 mmol/L [facility] Anion Gap 10(L) 12 - 20 [facility] Urea Nitrogen (BUN) 6(L) 9 - 16 mg/dL [facility] Creatinine, Serum 0.65 0.5 - 1.4 mg/dL [facility] Estimated Glomerular Filt Rate >60 [facility] Comment:Chronic Kidney Disea se: Estimated GFR < 60 mL/min/1.12t2Skcsvm Kidney Disease: Estimated GFR < 15 mL/min/1.73m2 Glucose Fasting 89 60 - 99 mg/dL [facility] Calcium 9.1 8.4 - 10.2 mg/dL [facility] Blood Venous blood specimen / Unknown 11/30/2024 10:14 AM EDT 11/30/2024 2:12 PM EDT us Juanita Hopson MD LAB BLOOD ORDERABLES Final Re sult Performing Organization Address [facility]/ZIP Co de Phone Number [facility] [address] [place] [phone] * Hemoglobin A1c (11/30/2024 10:14 AM EDT) Hemoglobin A1c 5.4 <6.0 % [facility] Comment:Hemoglobin A1C Refer ence Range Adults: 4.8 - 6.0 % Non diabetic: < 6.0 % Goal: < 7.0 %Additional Action Suggested: > 8.0 %Note: Hemoglobin A1c results are invalid for patients with abnormal amounts of HbF. Blood transfusions may impact the HbA1c concentration in the patient sample. Estimated Average Glucose 108 mg/dL [facility] Comment:eAG = Estimated ave rage glucose which is %A1C expressed asaverage glucose, using the formula of the Q2X-UdaafiyVhhzsiu Glucose study (ADAG), Diabetes Care, Vol.31,#8,Mar. 2007 Blood Venous blood specimen / Unknown 11/30/2024 10:14 AM EDT 11/30/2024 2:12 PM EDT us Juanita Hopson MD LAB BLOOD ORDERABLES Final Re sult [facility] [address] [place] [address] [phone] * Hepatic Function Panel (11/30/2024 10:14 AM EDT) Bilirubin, Total 0.2 0.0 - 1.0 mg/dL [facility] Bilirubin, Direct 0.2 0.0 - 0.5 mg/dL [facility] Aspartate Amino Transferase 25 5 - 31 U/L [facility] Alanine Aminotransferase 15 0 - 31 U/L [facility] Total Protein 7.2 6.5 - 8.0 g/dL [facility] Albumin Level 4.2 3.5 - 5.0 g/dL [facility] Alkaline Phosphatase 72 39 - 117 U/L [facility] Blood Venous blood specimen / Unknown 11/30/2024 10:14 AM EDT 11/30/2024 2:12 PM EDT us Juanita Hopson MD LAB BLOOD ORDERABLES Final Re sult [facility] [address] [place] [phone] * (ABNORMAL) Lipid Panel, Standard (11/30/2024 10:14 AM EDT) Triglycerides 85 <150 mg/dL [facility] Comment:Desirable Triglyceri de: less than 150 mg/dLBorderline High Triglyceride 150-199 mg/dLHigh Triglyceride: 200-499 mg/dLVery High Triglyceride: greater than or equal to 5OO mg/dL Cholesterol 173 <200 mg/dL [facility] Comment:Desirable Cholestero l: less than 200 mg/dLBorderline High Cholesterol: 200-239 mg/dLHigh Cholesterol: greater than 239 mg/dL LDL Cholesterol Calculated 120(H) <100 mg/dL [facility] Comment:Desirable LDL: less than 100 mg/dLNear Optimal/Above Optimal LDL: 110- 129 mg/dLBorderline High LDL: 130-159 mg/dLHigh LDL: 160-189 mg/dLVery High LDL: greater than or equal to 190 mg/dL HDL Cholesterol 36(L) >40 mg/dL [facility] Comment:Desirable HDL: great er than 40 mg/dL Note: This HDL assay may give artificially low results in patients with liver disease. Blood Venous blood specimen / Unknown 11/30/2024 10:14 AM EDT 11/30/2024 2:12 PM EDT Juanita Hopson MD LAB BLOOD ORDERABLES Final Re sult Performing Organization Address [facility] Co de Phone Number [facility] [address] [place] [address] [phone] * (ABNORMAL) Bacterial Vaginosis Panel (11/30/2024 10:08 AM EDT) TRICHOMONAS VAGINALIS DETECTION BY PCR NOT DETECTED Not Detect [facility] BACTERIAL VAGINOSIS DETECTION BY PCR POSITIVE(A) Negative [facility] Comment:The BV organism targ ets of the Xpert Xpress MVP test can becommensal in women; Xpert Xpress MVP positive results forbacterial vaginosis should be considered in conjunction withother clinical and patient information to determine thedisease status. Organisms that are not detected by the XpertXpress MVP test have also been reported to be associatedwith BV and aerobic vaginitis.The Xpert Xpress MVP test performance has not been evaluatedin patients under the age of 14. ADILIA GROUP DETECTION BY PCR DETECTED(A) Not Detect [facility] Adilia glab krusei PCR NOT DETECTED Not Detect [facility] Swab Vaginal structure / Unknown 11/30/2024 10:08 AM EDT 11/30/2024 2:31 PM EDT Clive Chappell CNM LAB MICROBIOLOGY - GENERA L ORDERABLES Final Result Performing Organization Address [facility]/ZIP Co de Phone Number [facility] [address] [place] [phone] * US Pelvis Transvaginal (11/16/2024 1:21 PM EDT) Anatomical Region Laterality Modality Pelvis Ultrasound 11/16/2024 1:21 PM EDT Narrative 11/16/2024 1:54 PM EDT ? [facility] ?[address] ? [place] [address] ? Ultrasound Report ? Signed ? Patient: Lori Garcia B ?MR#: [id number] ?? 84 ? : 2000 ?Acct:[id number] ? Age/Sex: 24 / F ?ADM Date: 11/16/24 ? Loc: HO.HMGCX ? Attending Dr: Jeffrey Sanchez MD ? Ordering Physician: Jeffrey Sanchez MD ?? Date of Service: 11/16/24 ?? Procedure(s): US pelvic and transvaginal ?? Accession Number(s): [id number] ? cc: Jeffrey Sanchez MD; Juanita Hopson [...] ??Duncan Quezada MD ??11/16/2024 01:51 PM EDT ? Dictated By: ?Duncan Quezada MD ? Signed By: ?<Electronically signed by Duncan Quezada MD in OV> ?11/16/24 1351 ? DD/ 1321 ? TD/TT: 11/16/24 1337 ? Auditor/Quality: ? Procedure Note Donchipter, Image - 11/16/2024 [facility] [address] [place] [address] [place] [address] Ultrasound Report Signed Patient: Lori Garcia BMR#: [id number] 84 : 2000Acct:[id number] Age/Sex: M Date: 11/16/24 Loc: HO.HMGCX Attending Dr: Jeffrey Sanchez MD Ordering Physician: Jeffrey Sanchez MD Date of Service: 11/16/24 Procedure(s): US pelvic and transvaginal Accession Number(s): [id number] cc: Jeffrey Sanchez MD; Juanita Hopson MD; [...] Duncan Quezada MD 11/16/2024 01:51 PM EDT RP Dictated By: Duncan Quezada MD Signed By: <Electronically signed by Duncan Quezada MD in OV> 11/16/24 1351 DD/ 1321 TD/TT: 11/16/24 1337 Auditor/Quality: Jeffrey Sanchez MD IMG US PROCEDURES Final Res ult * POCT Urine (11/09/2024 9:58 AM EDT) Pathologist [facility] Preg Test, Ur Negative Negative, Indeterminate, None Detected, Invalid, Specimen unsatisfactory for evaluation, Weakly Positive QC Media Lot # [id number] Lot# Expiration Date ,068,529 Urine 11/09/2024 9:58 AM EDT Clive Chappell CNM POINT OF CARE TEST ENTER/ EDIT ORDERABLES Final Result * CBC auto differential (11/09/2024 9:15 AM EDT) Only the most recent of2 resultswithin the time period is included. [facility] White Blood Count 9.5 4.8 - 10.8 X10*3/uL [facility] Red Blood Count 4.75 4.20 - 5.50 X10*6/uL [facility] Hemoglobin 13.0 12.0 - 16.0 g/dl [facility] Hematocrit 38.4 37.0 - 47.0 % [facility] Mean Corpuscular Volume 80.8 80.0 - 98.0 fL [facility] Mean Corpuscular Hemoglobin 27.4 27.0 - 33.0 pg [facility] Mean Corpuscular HGB Conc 33.9 31.0 - 35.0 g/dl [facility] Red Cell Distribution Width 14.6 11.0 - 16.0 % [facility] Platelet Count 352 160 - 400 X10*3/uL [facility] Mean Platelet Volume 10.3 9.4 - 12.3 fL [facility] Neutrophils Percent Auto 65.8 45 - 73 % [facility] Imm Gran Pct Auto 0.3 0.0 - 0.4 % [facility] Lymphocytes Percent Auto 25.7 20 - 40 % [facility] Monocytes Percent Auto 6.9 2 - 11 % [facility] Eosinophils Percent Auto 0.7 0 - 4 % [facility] Basophils Percent Auto 0.6 0 - 2 % [facility] NRBC Pct Auto 0.0 0.0 - 0.2 /100WBC [facility] Neutrophils Absolute Auto 6.2 2.0 - 8.3 x10*3/uL [facility] Imm Gran Abs Auto 0.03 0.00 - 0.03 X10*3/uL [facility] Lymphocytes Absolute Auto 2.4 1.2 - 4.9 X10*3/uL [facility] Monocytes Absolute Auto 0.7 0.1 - 1.2 X10*3/uL [facility] Eosinophils Absolute Auto 0.1 0.0 - 0.4 X10*3/uL [facility] Basophils Absolute Auto 0.1 0.0 - 0.2 X10*3/uL [facility] NRBC Abs Auto 0.000 0.0 - 0.012 X10*3/uL [facility] Blood Venous blood specimen / Unknown 11/09/2024 9:15 AM EDT 11/09/2024 2:37 PM EDT us Jeffrey Sanchez MD LAB BLOOD ORDERABLES Final Result [facility] [address] [place] [phone] [phone] * STI testing add on (NG, CT, Trich) (11/09/2024 12:00 AM EDT) Trichomonas (NAAT) NOT DETECTED NOT DETECTED [facility] Comment:The analytical perfo rmance characteristics of thisassay have been determined by [facility]. Themodifications have not been cleared or approved bythe FDA. This assay has been validated pursuant to theCLIA regulations and is used for clinical purposes.For additional information, please refer tohttp://education.Duxter/faq/Trichomonastma(This link is being provided for information/educational purposes only.)THIS TEST WAS PERFORMED AT:[facility] [address] [phone] GARCIA MD CTNG Ref Lab NOT DETECTED NOT DETECTED [facility] NG Ref Lab NOT DETECTED NOT DETECTED [facility] ThinPrep?? vial Cervix uteri structure / Unknown 11/09/2024 11/10/2024 6:04 AM EDT [facility] - 11/12/2024 11:24 AM EDT Collection Date: [id number] by: CHRISTY Alexander: Cervix Clvie Chappell [facility] LAB CYTOLOGY ORDERABLES F inal Result [facility] [address] [place] [address] [phone] * Pap Smear (11/09/2024 12:00 AM EDT) Swab Cervix uteri structure / Unknown 11/09/2024 11/10/2024 6:04 AM EDT [facility] - 11/14/2024 9:54 AM EDT ----- ------- Name: Lori Garcia ? Age/Sex: 24/F ? : 2000 Unit#: [id number] ?? Attend Dr: CLIVE CHAPPELL CNM ?Re11/09/24 ?Status: DEP REF ? Location: HO.CHCLNP ? Disch: ? ----- ------- SPEC : [id number] ? RECD: 11/10/24 ? STATUS: ??SOUT ? REQ NUM: [id number] ? KENISHA: 11/09/24- ? SUBM DR: CLIVE CHAPPELL CNM ? ENTERED: ??11/10/24 ?SP TYPE: Pap Smr ?OTHR DR: ? ORDERED: ??Pap Smear ? Interpretation ?? Satisfactory for evaluation. ?? Negative for intraepithelial lesion or malignancy. ?? No endocervical cells seen. ?Clinical Information LMP:10/19/24 Previous PAP test:initial PAP ? Material Received ?? ThinPrep-Cervical ----- ------- Signed (signature on file) ZEINA Crandall (ASCP) 11/14/24 0954 ? ----- ------- ? END OF REPORT ? us Clive LOWRY LAB CYTOLOGY ORDERABLES F inal Result [facility] [address] [place] [phone] * TSH W/Reflex to FT4 (11/01/2024 2:56 PM EDT) TSH reflex Free T4 1.37 0.32 - 4.0 uIU/mL [facility] Blood Venous blood specimen / Unknown 11/01/2024 2:56 PM EDT 11/01/2024 5:57 PM EDT us Jeffrey Sanchez MD LAB BLOOD ORDERABLES Final Result Performing Organization Address [facility] Co de Phone Number [facility] [address] [place] [address] [phone] * hCG, Total, Quantitative (11/01/2024 2:56 PM EDT) HCG Quantitative <2 mIU/mL [facility] Comment:Weeks post LMP Appro ximate hCG(Last Menstrual Period) Range (mIU/ml)3 - 4 weeks 9 - 1304 - 5 weeks 75 - 2,6005 - 6 weeks 850 - 20,8006 - 7 weeks 4000 - 100,2007 - 12 weeks 11,500 - 289,07327 - 16 weeks 18,300 - 137,70034 - 29 weeks (2nd trimester) 1,400 - 53,37442 - 41 weeks (3rd trimester) 940 - [...] BLOOD ORDERABLES Final Result Performing Organization Address [facility] Co de Phone Number [facility] [address] [place] [phone] [phone] from Last 3 Months Insurance [facility] [employer] Care Teams Riveter Helper Relationship Specialty Start Date End Date Juanita Hopson MD [address] [place] [phone] PCP - General Family Medicine 09/24/20
[2024-12-29 18:29] LABS: HCG Quantitative 14906 mIU/mL
== END 2024-12-29 15:37 | disposition home or self-care (01) ==
LOC: HO.CHCLDS 15:36
PROVIDERS: Visit Provider Pediatrics
DX: N92.6 Irregular menstruation, unspecified (principal)
CPT/HCPCS: 36415; 84702